=== PATIENT | male | born 1955 | race Caucasian/White ===

== ENCOUNTER 2020-12-19 21:06 | Outpatient (REF) | payer MEDICARE, SELFPAY ==
[2020-12-19 21:56] LABS: ALT 49 U/L (16-63); AST 21 U/L (15-37); Calculated LDL 184 mg/dL (<100); Cholesterol 261 mg/dL (<200); HDL Cholesterol 62 mg/dL (40-60); Triglyceride 78 mg/dL (<150)
[2020-12-20 18:10] LABS: PSA, Screening 4.5 ng/mL (0.0-4.5)
== END 2020-12-19 21:07 | disposition home or self-care (01) ==
LOC: NCHCN 21:06
PROVIDERS: PCP Specialist/Technologist Athletic Trainer; Visit Provider Nurse Practitioner Family
DX: E78.89 Other lipoprotein metabolism disorders (principal); Z12.5 Encounter for screening for malignant neoplasm of prostate
CPT/HCPCS: 80061; 84153; 84450; 84460

== ENCOUNTER → 2021-04-26 10:23 | Outpatient (BNVA) | payer MEDICARE, SELFPAY | PROVIDERS: PCP Specialist/Technologist Athletic Trainer; Referring Provider Specialist/Technologist Athletic Trainer; Visit Provider Student in an Organized Health Care Education/Training Program | DX: S86.012A Strain of left Achilles tendon, initial encounter (principal); X50.0XXA Overexertion from strenuous movement or load, initial encounter | CPT/HCPCS: 99203 ==

== ENCOUNTER → 2021-05-10 07:57 | Outpatient (BNVA) | payer MEDICARE, SELFPAY | PROVIDERS: PCP Specialist/Technologist Athletic Trainer; Referring Provider Specialist/Technologist Athletic Trainer | DX: S86.012D Strain of left Achilles tendon, subsequent encounter (principal); X58.XXXD Exposure to other specified factors, subsequent encounter | CPT/HCPCS: 99212 ==

== ENCOUNTER → 2021-06-07 08:49 | Outpatient (BNVA) | payer MEDICARE, SELFPAY | PROVIDERS: PCP Specialist/Technologist Athletic Trainer; Referring Provider Specialist/Technologist Athletic Trainer; Visit Provider Student in an Organized Health Care Education/Training Program | DX: S86.012D Strain of left Achilles tendon, subsequent encounter (principal); X58.XXXD Exposure to other specified factors, subsequent encounter | CPT/HCPCS: 99212 ==

== ENCOUNTER → 2021-07-05 08:27 | Outpatient (BNVA) | payer MEDICARE, SELFPAY | PROVIDERS: PCP Specialist/Technologist Athletic Trainer; Referring Provider Specialist/Technologist Athletic Trainer; Visit Provider Student in an Organized Health Care Education/Training Program | DX: S86.012D Strain of left Achilles tendon, subsequent encounter (principal); X58.XXXD Exposure to other specified factors, subsequent encounter | CPT/HCPCS: 99212 ==

== ENCOUNTER 2021-09-17 13:16 | Emergency (ER) | payer MEDICARE, SELFPAY ==
[2021-09-17] VITALS (18 sets, daily range): BP systolic 132–171; BP diastolic 79–98; PULSE 77–90; RESP 16–26; TEMP 36.6; O2SAT 91–97
--- NOTE | 2021-09-17 13:15 | RT.EKG_ITS ---
APPROVED REPORT Exam: Resting ECG Reason for Exam: SOB Patient Location: E HR:88 bpm ECG Measurements Heart Rate [address] 154 P 65 QRSd 106 QRS -46 QT 393 T 58 QTc 475 Conclusion Sinus rhythm...normal P axis, V-rate 60- 99 Incomplete RBBB and LAFB...axis(240,-40), S>R II III aVF ST elevation, consider inferior injury...ST >0.08mV, II III aVF. Sinus. RBBB. LAFB. No STEMI. I have reviewed and interpreted ECG and agree with software generated interpretation.
--- NOTE | 2021-09-17 13:30 | DI.CT_ITS ---
Exam(s) CT CHEST PE ABD PELVIS W EXAM: CT CHEST PE ABD PELVIS W CLINICAL HISTORY: PUI, RUQ abd Pain, R/O PNA, PE. TECHNIQUE: Imaging Protocol: Axial CT angiography was performed with multi-slice acquisition and m ulti-planar and/or 3D reconstructions. CONTRAST MATERIAL: Intravenous: Omnipaque 350 Contrast volume:100 ml Oral: None COMPARISON: CR RIGHT SHOULDER COMPLETE from 08/12/2017 CR LEFT SHOULDER COMPLETE from 08/12/2017 FINDINGS: CHEST: PULMONARY ARTERIES: There are intraluminal filling defects in multiple right lower lobe arteries cons istent with acute pulmonary emboli. There does not appear to be involvement of right upper and right middle lobe vessels nor evidence of pulmonary emboli in the opposite-left lung. LUNGS: Some increased markings consistent with infiltrate noted in the right lower lobe posterior bas al segment. Cannot exclude developing pulmonary infarct given that this is the territory of the thro mbosed vessels. Otherwise, there are mild subpleural increased markings in the posterior segment of the right upper lobe. Mild benign-appearing increased markings are noted in the superior lingular se gment of the left lung. No significant focal findings in the left lower lobe. No pleural effusions on either side. No focal findings in the trachea and mainstem bronchi.. MEDIASTINUM: There is no hilar nor mediastinal adenopathy. Visualized thyroid unremarkable. CARDIAC: Heart size is normal. There is no pericardial effusion. There is no significant shift of t he interventricular septum.Caliber of the thoracic aorta is within normal limits. OSSEOUS: No significant osseous lesions.. ABDOMEN: There is no ascites. LIVER: There are 3 benign-appearing cysts in the left hepatic lobe. The largest of these measures 1. 2 by 1.2 cm. There are 2 small cysts in the right hepatic lobe. Largest of these measures 6 millime ters. GALLBLADDER/BILIARY: No obvious gallbladder pathology. CBD is not dilated. PANCREAS: No evidence of pancreatic mass nor dilatation of the pancreatic duct. SPLEEN: Spleen is not enlarged. There are no intrasplenic lesions. Splenic and portal veins are pop nt. ADRENALS: There are no significant adrenal masses. KIDNEYS:There are parapelvic cysts in both kidneys. There is a calculus lower pole calyx of the left kidney measuring 7 x 5 millimeters. No other renal calculi. Parapelvic cysts are also seen in the left kidney. Ureters are not dilated. No calculi at the ureterovesical junctions nor within the non distended urinary bladder. No solid renal masses.. ABDOMINAL AORTA: Abdominal aorta is not enlarged. LYMPH NODES: There is no retroperitoneal or para-aortic adenopathy. ABDOMINAL WALL/GI: No evidence of significant anterior abdominal wall hernia. No bowel obstruction. PELVIS: LYMPH NODES: There are multiple slightly prominent lymph nodes in the right lower quadrant mesentery in the region of the mesoappendix. The appendix itself appears unremarkable. No obvious abnormality of the terminal ileum and cecum. GI: No evidence of appendicitis.No evidence of sigmoid diverticulitis. URINARY BLADDER: No calculi nor masses evident REPRODUCTIVE: Prostate size upper normal. Seminal vesicles unremarkable. OSSEOUS: No significant osseous lesions. IMPRESSION: 1. This study is positive for the presence of pulmonary emboli right lung lower lobe vessels. There is some infiltrate in the posterior basal segment of the right lower lobe. Cannot exclude the possib ly that this is developing infarct given that this is the area of fed by the presently thrombosed art eries. No other areas of pulmonary emboli nor infiltrate. There are no pleural effusions 2. No intrathoracic adenopathy. 3. Parapelvic cysts noted in both kidneys. 7 x 5 millimeter calculus in the lower pole left kidney. No hydroureter nor calculi in the urinary bladder. 4. There are few slightly prominent lymph nodes in the right lower quadrant mesentery, not associated with obvious abnormality the appendix nor terminal ileum. Report called by myself to ER provider RADIATION DOSE DELIVERED: 1,411.77mGy.cm Total DLP DATA REPOSITORY: All CT scans at this facility are submitted to the National Radiology Data Registry (NRDR) Dose Index Registry (DIR) with the [employer] (ACR). RADIATION OPTIMIZATION: All CT scans at this facility use at least one of these dose optimization te chniques: automated exposure control; mA and/or kV adjustment per patient size (includes targeted exa ms where dose is matched to clinical indication); or iterative reconstruction.
--- NOTE | 2021-09-17 13:39 | ED.GENADUL_ITS ---
Discharge Plan Disposition Patient Disposition: HOME Condition: Stable Discharge Details Clinical Impression: Pulmonary embolism, Pneumonia Primary Care Provider: Nishi Mckinley ED Provider: Keisha Salgado Home Meds and New Rx's Prescriptions: New Carolyne DVT-PE Treat 30D Start 5 mg (74 tabs) tablets,dose pack See Rx Instructions .ROUTE .COMPLEX 30 Days Qty: 74 RF: 0 doxycycline hyclate 100 mg capsule 100 mg PO BID 10 Days Qty: 20 RF: 0 No Action multivitamin [Daily Multiple] 1 EACH tablet 1 ea PO DAILY RF: 0 atorvastatin 20 mg tablet 20 mg PO QHS RF: 0 albuterol sulfate [ProAir HFA] 90 mcg/actuation HFA aerosol inhaler 2 puff inhalation Q6H PRNRF: 0 Discharge Instructions Instructions: Pulmonary Embolism (ED), Pneumonia (ED) Additional Instructions: At this time it appears you have a small blood clot and infiltrate in the right lower lobe of the lungs. We are going to place you on blood thinners and antibiotics. Take them as directed. The prescriptions were sent to the pharmacy on file. Please return immediately to the emergency department for any worsening shortness of breath, chest pain or any concerns. Follow up with primary care provider in 3-5 days. Return to ED sooner if any worsening or concerns. Increase oral fluids. Referrals: Harley Eason [ NON-[facility] STAFF PHYSICIAN] - 3 days Discharge Data Discharge Date/Time-TO BE ENTERED AT DEPARTURE: 09/17/21 17:51 Medical Decision Making <Keisha Salgado - Last Filed: 09/18/21 17:06> 65-year-old male to the ER with chief complaint right-sided chest and abdominal pain which has worsened today. Patient describes the pain as sharp stabbing, worse when he takes a deep breath with some increased shortness of breath. He reports having URI type symptoms over the last week. He does have a granddaughter who was tested positive for COVID. He does not smoke, occasional alcohol none within the last 2 weeks. He denies any nausea vomiting diarrhea. No surgical history. He is fully vaccinated for COVID. Past medical history includes high cholesterol and asthma. Upon initial examination he is satting 97% on room air, speaking in full sentences no increased work of breathing. FINDINGS: CHEST: PULMONARY ARTERIES: There are intraluminal filling defects in multiple right lower lobe arteries consistent with acute pulmonary emboli. There does not appear to be involvement of right upper and right middle lobe vessels nor evidence of pulmonary emboli in the opposite-left lung. LUNGS: Some increased markings consistent with infiltrate noted in the right lower lobe posterior basal segment. Cannot exclude developing pulmonary infarct given that this is the territory of the thrombosed vessels. Otherwise, there are mild subpleural increased markings in the posterior segment of the right upper lobe. Mild benign-appearing increased markings are noted in the superior lingular segment of the left lung. No significant focal findings in the left lower lobe. No pleural effusions on either side. No focal findings in the trachea and mainstem bronchi.. MEDIASTINUM: There is no hilar nor mediastinal adenopathy. Visualized thyroid unremarkable. CARDIAC: Heart size is normal. There is no pericardial effusion. There is no significant shift of the interventricular septum.Caliber of the thoracic aorta is within normal limits. OSSEOUS: No significant osseous lesions.. ABDOMEN: There is no ascites. LIVER: There are 3 benign-appearing cysts in the left hepatic lobe. The largest of these measures 1.2 by 1.2 cm. There are 2 small cysts in the right hepatic lobe. Largest of these measures 6 millimeters. GALLBLADDER/BILIARY: No obvious gallbladder pathology. CBD is not dilated. PANCREAS: No evidence of pancreatic mass nor dilatation of the pancreatic duct. SPLEEN: Spleen is not enlarged. There are no intrasplenic lesions. Splenic and portal veins are patent. ADRENALS: There are no significant adrenal masses. KIDNEYS:There are parapelvic cysts in both kidneys. There is a calculus lower pole calyx of the left kidney measuring 7 x 5 millimeters. No other renal calculi. Parapelvic cysts are also seen in the left kidney. Ureters are not dilated. No calculi at the ureterovesical junctions nor within the nondistended urinary bladder. No solid renal masses.. ABDOMINAL AORTA: Abdominal aorta is not enlarged. LYMPH NODES: There is no retroperitoneal or para-aortic adenopathy. ABDOMINAL WALL/GI: No evidence of significant anterior abdominal wall hernia. No bowel obstruction. PELVIS: LYMPH NODES: There are multiple slightly prominent lymph nodes in the right lower quadrant mesentery in the region of the mesoappendix. The appendix itself appears unremarkable. No obvious abnormality of the terminal ileum and cecum. GI: No evidence of appendicitis.No evidence of sigmoid diverticulitis. URINARY BLADDER: No calculi nor masses evident REPRODUCTIVE: Prostate size upper normal. Seminal vesicles unremarkable. OSSEOUS: No significant osseous lesions. IMPRESSION: 1. This study is positive for the presence of pulmonary emboli right lung lower lobe vessels. There is some infiltrate in the posterior basal segment of the right lower lobe. Cannot exclude the possibly that this is developing infarct given that this is the area of fed by the presently thrombosed arteries. No other areas of pulmonary emboli nor infiltrate. There are no pleural effusions 2. No intrathoracic adenopathy. 3. Parapelvic cysts noted in both kidneys. 7 x 5 millimeter calculus in the lower pole left kidney. No hydroureter nor calculi in the urinary bladder. 4. There are few slightly prominent lymph nodes in the right lower quadrant mes entery, not associated with obvious abnormality the appendix nor terminal ileum. 1621: Hospitalist paged. Discussed patient case in details with hospitalist who recommends that patient should be safe for discharge home due to negative for heart strain and maintaining oxygen saturation. He does recommend Eliquis. I will discuss results with patient prescribe doxycycline and Eliquis and strict return instructions. At this time we are waiting repeat troponin at 435pm. Troponin negative patient discharged with strict return instructions. Patient remained hemodynamically stable is nontachycardic O2 sat 94% on room air. <Neftaly Ricks NP - Last Filed: 09/20/21 10:13> Please see previous documentation for full care of patient. 2nd troponin negative and patient discharged per previous recommendation from initial provider. Patient left in stable condition. HPI <Keisha Salgado - Last Filed: 09/18/21 17:06> General Mode of arrival: ambulatory . Date/Time Provider Initiated Documentation: 09/17/21 13:17 . Limitations to Documentation: no limitations . Information obtained by: patient, RN/MD ([facility]), RN notes reviewed and old records reviewed . HPI Narrative: 65-year-old male to the ER with chief complaint right-sided chest and abdominal pain which has worsened t mayi. Patient describes the pain as sharp stabbing, worse when he takes a deep breath with some increased shortness of breath. He reports having URI type symptoms over the last week. He does have a granddaughter who was tested positive for COVID. He does not smoke, occasional alcohol none within the last 2 weeks. He denies any nausea vomiting diarrhea. No surgical history. He is fully vaccinated for COVID. Past medical history includes high cholesterol and asthma. Upon initial examination he is satting 97% on room air, speaking in full sentences no increased work of breathing. Related Data Home Medications Medication Instructions Recorded Confirmed multivitamin [Daily Multiple 1 ea PO DAILY 01/07/17 09/17/21 Vitamin] albuterol sulfate 90 mcg/actuation 2 puff INHALATION Q6H PRN 04/29/21 09/17/21 aerosol inhaler atorvastatin 20 mg tablet 20 mg PO QHS 04/29/21 09/17/21 apixaban [Eliquis DVT-PE Treat 30D See Rx Instructions .ROUTE 09/17/21 Start] .COMPLEX 30 Days #74 dose pk doxycycline hyclate 100 mg PO BID 10 Days #20 cap 09/17/21 Previous Rx's Medication Instructions Recorded apixaban [Eliquis DVT-PE Treat 30D See Rx Instructions .ROUTE 09/17/21 Start] .COMPLEX 30 Days #74 dose pk doxycycline hyclate 100 mg PO BID 10 Days #20 cap 09/17/21 Allergies Allergy/AdvReac Type Severity Reaction Status Date / Time No Known Drug Allergies Allergy Unknown Unverified 09/17/21 13:55 dust and dust mites Allergy Uncoded 09/17/21 13:54 General Stated Complaint: SOB JUSTIN: 2 Review of Systems <Keisha Salgado - Last Filed: 09/18/21 17:06> All systems reviewed & are unremarkable except as noted in HPI and below Cardiovascular Cardiovascular: Reports dyspnea Respiratory Respiratory: Reports pain on inspiration and Reports dyspnea Gastrointestinal Gastrointestinal: Reports abdominal pain PFSH <Keisha Salgado - Last Filed: 09/18/21 17:06> All Active Problems (Updated 09/17/21 @ 16:37 by Keisha Salgado) Pulmonary embolism (Chronic) Pneumonia (Acute) Achilles rupture, left (Acute) Medical History 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 Appears stated age. Normal body habitus. Head: Normocephalic, no trauma. Eyes: Pupils PERRL, Red reflex noted, EOM's intact. Eyelids symmetrical without lesions, discharge, or swelling. ENT: Bilateral TM's WNL, External ear normal to inspection, no mastoid TTP, swelling, or erythema, Nasal turbinates WNL, no nasal discharge. Normal dentition, Posterior pharynx WNL, no exudate. Chest: RRR, Normal S1, S2, distal pulses intact. Resp: Rhonchi right lower lobe, Abdomen: Soft, non-distended, Normoactive bowel sounds all 4 quads. Musculoskeletal: Normal gait, 5/5 strength to all four extremities. Skin: No suspicious rashes or lesions. Capillary refill less than 2 sec. Neurologic: Cranial nerves II-XII intact. Alert and oriented x 3. Motor: No deficits noted. Sensory: Intact bilaterally all 4 extremities. Reflexes: DTR's intact bilaterally.. Hematologic/Lymphatic: No ecchymosis, no lymphadenopathy. Course <Keisha Salgado - Last Filed: 09/18/21 17:06> Vital Signs Vital signs: Vital Signs Temperature 36.6 C 09/17/21 13:25 Pulse 90 09/17/21 13:25 Respiratory Rate 26 H 09/17/21 13:25 Blood Pressure 167/98 H 09/17/21 13:25 Pulse Oximetry 97 09/17/21 13:25 Temperature 36.6 C 09/17/21 13:25 Pulse 90 09/17/21 13:25 Respiratory Rate 26 H 09/17/21 13:25 Respiratory Effort Incrsd Work of Breathing 09/17/21 13:33 Blood Pressure 167/98 H 09/17/21 13:25 Pulse Oximetry 97 09/17/21 13:25 Oxygen Delivery Method Room Air 09/17/21 13:25 Oxygen Flow Rate 0 09/17/21 13:25 Pain Level 8 09/17/21 13:25
[2021-09-17 13:44] LABS: Source Nasal/Nares
[2021-09-17 13:52] LABS: Abs Immature Grans 0.05 10^3/uL (0.0-0.06); Absolute Basophil Count 0.05 10^3/uL (0.0-0.2); Absolute Eosinophil Count 0.02 10^3/uL (0.0-0.7); Absolute Lymphocyte Count 1.03 10^3/uL (1.2-3.4); Absolute Monocyte Count 1.61 10^3/uL (0.1-0.8); Basophils % 0.4; Eosinophils % 0.2; HCT 49.5 % (40.0-50.0); HGB 16.8 g/dL (13.5-17.5); Immature Grans % 0.4; Lymphocytes % 8.6; MCH 31.1 pg (27.0-33.0); MCHC 33.9 % (32.0-36.0); MCV 91.5 fL (80-95); MPV 9.3 fL (8.0-11.0); Monocytes % 13.4; Nucleated RBC 0 %; Platelet Count 321 10^3/uL (130-400); RBC 5.41 10^6/uL (4.36-5.78); RDW 12.6 % (11.8-14.1); RDW-SD 42.3 fL; WBC 12.03 10^3/uL (4.4-10.8)
[2021-09-17 13:58] LABS: Absolute Neutrophil Count 9.26 10^3/uL (1.2-6.7)
--- NOTE | 2021-09-17 14:15 | RT.EKG_ITS ---
APPROVED REPORT Exam: Resting ECG Reason for Exam: R/O ST elevation Patient Location: E HR:78 bpm ECG Measurements Heart Rate 78 AXIS IN 158 P 45 QRSd 107 QRS -30 QT 416 T 48 QTc 473 Conclusion Sinus rhythm...normal P axis, V-rate 60- 99 Incomplete RBBB and LAFB...axis(240,-40), S>R II III aVF. Sinus. LAFB. RBBB. No STEMI. I have reviewed and interpreted ECG and agree with software generated interpretation.
[2021-09-17 14:22] LABS: Diff Comment Diff Reviewed; RBC Morphology Normal
[2021-09-17 14:57] LABS: ALT 30 U/L (16-63); AST 15 U/L (15-37); Albumin 3.4 g/dL (3.4-5.0); Alkaline Phosphatase 118 U/L (46-116); Anion Gap 12.3 mmol/L (3-11); BUN 13 mg/dL (7-18); Bilirubin, Total 0.8 mg/dL (0.2-1.0); CO2 23.7 mmol/L (21.0-32.0); CREATININE 0.8 mg/dL (0.70-1.30); Calcium 9.1 mg/dL (8.5-10.1); Chloride 99 mmol/L (98-107); Glucose 108 mg/dL (74-106); Potassium 3.9 mmol/L (3.5-5.1); Sodium 135 mmol/L (136-145); Total Protein 8.2 g/dL (6.4-8.2); Troponin I < 50 ng/L (<or=60)
[2021-09-17 15:15] LABS: COVID-19 PCR Negative (Negative)
--- NOTE | 2021-09-17 16:30 | RT.EKG_ITS ---
APPROVED REPORT Exam: Resting ECG Reason for Exam: PE Patient Location: E HR:80 bpm ECG Measurements Heart Rate 80 AXIS DE 163 P 65 QRSd 103 QRS -37 QT 412 T 53 QTc 475 Conclusion Sinus rhythm...normal P axis, V-rate 60- 99 Incomplete RBBB and LAFB...axis(240,-40), S>R II III aVF. Sinus. Incomplete RBBB and LAFB. No STEMI. I have reviewed and interpreted ECG and agree with software generated interpretation.
[2021-09-17 16:40] LABS: INR 1.2 (0.9-1.1); PTT Activated 27.5 sec (21.0-27.5); Prothrombin Time 11.8 sec (9.3-11.0)
[2021-09-17 17:13] LABS: Troponin I < 50 ng/L (<or=60)
[2021-09-17] MEDS: Apixaban 5 MG TAB 10 MG PO (17:15)
[2021-09-17] MEDS: Doxycycline Hyclate 100 MG CAP PO (17:15)
== END 2021-09-17 17:51 | disposition home or self-care (01) ==
PROVIDERS: Emergency Provider Registered Nurse Emergency; PCP Nurse Practitioner Family
DX: I26.99 Other pulmonary embolism without acute cor pulmonale (principal); J18.9 Pneumonia, unspecified organism; R06.02 Shortness of breath; R07.9 Chest pain, unspecified
CPT/HCPCS: 36415; 71275; 74177; 80053; 87635; 93005; 99285; 83735; 84484; 85025; 85610; 85730; 93010; 99284

== ENCOUNTER 2021-10-09 08:55 | Outpatient (REF) | payer MEDICARE, SELFPAY ==
[2021-10-09 14:55] LABS: Calculated LDL 149 mg/dL (<100); Cholesterol 227 mg/dL (<200); HDL Cholesterol 62 mg/dL (40-60); Triglyceride 80 mg/dL (<150)
[2021-10-09 22:30] LABS: PSA, Screening 6.7 ng/mL (0.0-4.5)
== END 2021-10-09 08:56 | disposition home or self-care (01) ==
LOC: NCHCN 08:55
PROVIDERS: PCP Nurse Practitioner Family; Visit Provider Nurse Practitioner Family
DX: E78.5 Hyperlipidemia, unspecified (principal); Z12.5 Encounter for screening for malignant neoplasm of prostate
CPT/HCPCS: 80061; 84153

== ENCOUNTER → 2021-10-17 12:51 | Outpatient (BNVA) | payer MEDICARE, SELFPAY | PROVIDERS: PCP Nurse Practitioner Family; Referring Provider Nurse Practitioner Family; Visit Provider Urology | DX: R97.20 Elevated prostate specific antigen [PSA] (principal); N20.0 Calculus of kidney | CPT/HCPCS: 81003; 99215 ==

== ENCOUNTER 2022-02-06 02:20 | Outpatient (CLI) | payer MEDICARE, SELFPAY ==
[2022-02-06 18:22] LABS: PSA, Diagnostic 5.8 ng/mL (<=4.5)
== END 2022-02-06 02:21 | disposition home or self-care (01) ==
LOC: LBO 02:20
PROVIDERS: PCP Nurse Practitioner Family; Visit Provider Urology
DX: R97.20 Elevated prostate specific antigen [PSA] (principal)
CPT/HCPCS: 36415; 84153

== ENCOUNTER → 2022-02-13 14:07 | Outpatient (BNVA) | payer MEDICARE, SELFPAY | PROVIDERS: PCP Nurse Practitioner Family; Referring Provider Nurse Practitioner Family; Visit Provider Nurse Practitioner Gerontology | DX: R97.20 Elevated prostate specific antigen [PSA] (principal) | CPT/HCPCS: 99213 ==

== ENCOUNTER 2022-05-06 02:42 | Outpatient (CLI) | payer MEDICARE, SELFPAY ==
[2022-05-06] MEDS: Inhaler, Assist Device 1 EACH MC (09:17)
[2022-05-06] MEDS: Albuterol HFA 18 GM 200 PUFF INH IH (09:17)
--- NOTE | 2022-05-23 16:18 | W.PFT ---
Date of service: 05/06/22 Time of Service: 14:45 Pulmonary Function Test Result Requesting Provider Steven Indications: LAFLEUR Interpretation Spirometry: There is moderate airflow limitation. There is no significant bronchodilator response. Lung Volumes: There is evidence of air trapping Diffusion Capacity: The diffusion is reduced. Airway Pressure: Normal airways resistance Impression Moderate airflow obstruction with a reduced diffusion, consistent with COPD with emphysema. Clinical Correlation therefore is recommended.
== END 2022-05-06 02:43 | disposition home or self-care (01) ==
LOC: RT 02:42
PROVIDERS: PCP Nurse Practitioner Family; Visit Provider Student in an Organized Health Care Education/Training Program
DX: J43.9 Emphysema, unspecified (principal)
CPT/HCPCS: 94060; 94726; 94729

== ENCOUNTER 2022-05-11 03:06 | Emergency (ER) | payer MEDICARE, SELFPAY ==
[2022-05-11] VITALS (19 sets, daily range): BP systolic 125–157; BP diastolic 75–111; PULSE 60–72; RESP 11–17; TEMP 36.8–36.9; O2SAT 91–96
--- NOTE | 2022-05-11 03:15 | DI.CT_ITS ---
Exam(s) CT CHEST WO EXAM: CT CHEST WO CLINICAL HISTORY: old PE and pneumonia, assess for prolonged damage. TECHNIQUE: Multi planar reconstructions were performed. CONTRAST MATERIAL: None COMPARISON: CT CT CHEST PE ABD PELVIS W from 09/17/2021 FINDINGS: CHEST: LUNGS: I note that this patient had acute right lower lobe pulmonary emboli on the CT scan of 022. The present study is noninfused and cannot be assessed for pulmonary emboli. Previously present mild subpleural infiltrate in the posterior aspect of the right upper lobe is berry lar to previous. Also minimal change in the atelectasis and mild infiltrate in the right lower lobe, not associated with pleural effusion and having appearance more of infiltrates as scarring than obvi ous neoplasm. No associated pleural effusion. In the opposite-left lung mild lingular findings are again noted. No pleural effusions on either [place] e. No new findings in trachea and mainstem bronchi. MEDIASTINUM: There is no obvious hilar nor mediastinal adenopathy. Visualized thyroid unremarkable.No obvious axillary adenopathy CARDIAC: Heart size is normal. There is no pericardial effusion.Caliber of the thoracic aorta is wit hin normal limits. VISUALIZED UPPER ABDOMEN:No significant adrenal masses. Partially visualized left kidney exhibits hy dronephrosis. Liver cysts again noted OSSEOUS: No significant osseous lesions.. IMPRESSION: 1. Relatively stable right lung findings when compared to 09/17/2021. No pleural effusions. No intr athoracic adenopathy. 2. Please note this patient had positive CTA study for right lower lobe pulmonary emboli on 2. This present study is noninfused and therefore cannot be assessed for pulmonary emboli. 3. See separate abdominal CT scan report RADIATION DOSE DELIVERED: 502.02mGy.cm Total DLP DATA REPOSITORY: All CT scans at this facility are submitted to the National Radiology Data Registry (NRDR) Dose Index Registry (DIR) with the [employer] (ACR). RADIATION OPTIMIZATION: All CT scans at this facility use at least one of these dose optimization te chniques: automated exposure control; mA and/or kV adjustment per patient size (includes targeted exa ms where dose is matched to clinical indication); or iterative reconstruction.
--- NOTE | 2022-05-11 03:18 | W.ED.GENAD ---
Discharge Plan Disposition Patient Disposition: HOME Condition: Good Discharge Details Clinical Impression: Kidney stone on left side Primary Care Provider: Nishi Mckinley ED Provider: Carlitos Tracey Home Meds and New Rx's Prescriptions: New tamsulosin [Flomax] 0.4 mg capsule 0.4 mg PO DAILY Qty: 10 0RF No Action atorvastatin 20 mg tablet 20 mg PO QHS albuterol sulfate [ProAir HFA] 90 mcg/actuation HFA aerosol inhaler 2 puff inhalation Q6H PRN fluticasone propion-salmeterol [Advair Diskus] 100-50 mcg/dose blister with device 1 inh inhalation BID Discharge Instructions Instructions: Kidney Stones (ED) Additional Instructions: At this time you have a kidney stone on the left. Please take the Flomax as directed. This has been sent to your pharmacy on file. Please take 1000 mg of Tylenol every 6 hours as needed for pain. This is the maximum dose. You will be contacted by our urologist Dr. Isaac for close follow-up this week. Please drink plenty of fluids and stay well-hydrated. If you notice any worsening of your symptoms, or any new symptoms such as vomiting, diarrhea, fever, chills, shortness of breath, chest pain, numbness, weakness, or fainting , please return immediately to the emergency department for reevaluation. Please follow up with your primary care provider as soon as possible for reassessment and reevaluation. As always, it was a pleasure participating in your medical care today. Referrals: Eloy Isaac MD [ [facility] STAFF PHYSICIAN] - Nishi Mckinley [Primary Care Provider] - Medical Decision Making 66-year-old male with past medical history of previous pulmonary embolism and pneumonia, asthma, who is no longer on anticoagulants, presents today for left lower quadrant pain. Patient states that yesterday he had a mild ache that started in his left testicle and left groin, it is no established itself in the left lower quadrant of his abdomen. He admits to a single episode of nausea and 1 episode of vomiting. No diarrhea. He did take 2 stool softeners today and this led to no bowel movements. He describes the pain as achy in nature. He denies any radiation to anywhere else. He denies any urinary complaints. He does have occasional history of kidney stones identified on CT imaging in the renal pelvis, but no past kidney stones. He denies fever or chills. No other complaints at this time. Of note he did recently see his powder truck driver and was scheduled for a Noncon CT scan of the chest for further evaluation of lung damage from his previous pulmonary embolism and pneumonia. He has no breathing or chest complaints whatsoever today. Exam demonstrates well-appearing male, notable left CVA tenderness but no reproducible abdominal tenderness whatsoever. No testicular or scrotal tenderness. Vitals are otherwise stable. Lungs are clear. Symptoms appear most concerning for kidney stone versus diverticulitis. We will get a CT scan, treat the patient's pain and gently rehydrate. Additionally he is scheduled for a noncontrast CT scan of his chest in 1 week as a routine follow-up with his powder truck driver. He did discuss this with us, and to help in ease of transport for the patient we will perform this scan now as well. 6:03 AM Urinalysis is returned with no evidence of infection whatsoever. Patient has minimal white count, no bandemia. Renal function is definitely worse than normal with a creatinine of 1.6. CT scan shows evidence of a 6 mm proximal left ureteral stone with moderate left-sided hydronephrosis. There is also a notable amount of perinephric fat stranding. There also appears to be fluid in the left inferior pararenal space, concerning for potential calyceal rupture of the left kidney. On reassessment the patient continues to be pain-free after the Toradol administration. He feels well. He is able to urinate. Symptoms are slightly atypical with no abdominal tenderness, and now being in a pain-free state especially in regards to the imaging findings. We did reach out to Dr. Isaca but it is the weekend at 6 in the morning and he is not available. We will reach out to [facility] for a urological discussion. 6:37 AM Discussed the case with Dr. Choi of [facility] urology. We discussed the imaging findings, and his lab findings as well. Including urinalysis. At this time urology feels that if the patient's pain is well controlled, and there is no evidence of infection then he can be discharged with close outpatient follow-up. They do not recommend urgent stenting at this time. Patient still remains pain-free currently. [facility] does recommend Flomax. We will give prescription for Flomax for home with close urology follow-up this week. Discussed red flags which to return. I have extensively reviewed the treatment plan and discharge instructions with the patient and their family. I have addressed all patient concerns at this time. The patient and family was made aware of what symptoms to monitor for that would warrant a return to the emergency department. Discussed the plan with the patient and family, they demonstrate verbal understanding and agreement with our assessment and plan at this time. The documentation in this chart was dictated using [employer] dictation software. Please excuse any dictation errors. FINDINGS: Liver: Multiple hypodensities throughout the liver, unchanged from prior exam. These are of doubtful clinical significance. Gallbladder and bile ducts: Normal. No calcified stones. No ductal dilation. Pancreas: Normal. No ductal dilation. Spleen: Normal. No splenomegaly. Adrenal glands: Normal. No mass. Kidneys and ureters: There is a 6 mm stone in the proximal left ureter resulting in moderate leftsided hydronephrosis. There are multiple stones in the inferior pole of the right kidney with the largest measuring 6 mm. Mild left-sided perinephric fat stranding is present as well. The right kidney and ureter are grossly unremarkable. Stomach and bowel: Unremarkable. No obstruction. No mucosal thickening. Appendix: No evidence of appendicitis. Intraperitoneal space: Unremarkable. No free air. No significant fluid collection Retroperitoneal space: There is a small amount of free fluid tracking in the retroperitoneum in the left inferior pararenal space. Vasculature: Diffuse aortoiliac calcifications are present. There is no evidence of abdominal aortic aneurysm. Lymph nodes: Unremarkable. No enlarged lymph nodes. Urinary bladder: Unremarkable as visualized. Reproductive: Unremarkable as visualized. Bones/joints: No aggressive appearing bony lesions. Soft tissues: Unremarkable. IMPRESSION: 1. 6 mm stone in the proximal left ureter resulting in moderate left-sided hydronephrosis. Given the amount of surrounding perinephric fat stranding, a superimposed infectious process cannot be excluded. 2. Free fluid tracking into the left inferior pararenal space. Given the amount of hydronephrosis in presumed obstruction, a calyceal rupture of the left kidney cannot be excluded. 3. Left-sided nephrolithiasis Thank you for allowing us to participate in the care of your patient. Dictated and Authenticated by: Neftaly Nuno DO 05/11/2022 5:41 AM Eastern Time ([place] & [place]) FINDINGS: Lungs: Diffuse centrilobular emphysematous changes of the lungs. Scarring is present in the lung bases. No significant pulmonary nodules. Pleural spaces: Unremarkable. No pneumothorax. No pleural effusion. Heart: Heart size is normal. Scattered coronary artery calcifications are present. Lymph nodes: Unremarkable. No enlarged lymph nodes. Vasculature: Unremarkable. No aortic aneurysm. Liver: Multiple hypodensities are seen in the left lobe of the liver, similar to prior exam. Bones/joints: No aggressive appearing bony lesions. Soft tissues: Unremarkable. IMPRESSION 1. Diffuse centrilobular emphysematous changes of the lungs with scarring in the lung bases. This is unchanged from prior exam. 2. Chronic changes as described. Thank you for allowing us to participate in the care of your patient. Dictated and Authenticated by: Neftaly Nuno DO 05/11/2022 5:37 AM Eastern Time ([place] & [place] HPI General Date/Time Provider Initiated Documentation: 05/11/22 03:16. HPI Narrative: 66-year-old male with past medical history of previous pulmonary embolism and pneumonia, asthma, who is no longer on anticoagulants, presents today for left lower quadrant pain. Patient states that yesterday he had a mild ache that started in his left testicle and left groin, it is no established itself in the left lower quadrant of his abdomen. He admits to a single episode of nausea and 1 episode of vomiting. No diarrhea. He did take 2 stool softeners today and this led to no bowel movements. He describes the pain as achy in nature. He denies any radiation to anywhere else. He denies any urinary complaints. He does have occasional history of kidney stones identified on CT imaging in the renal pelvis, but no past kidney stones. He denies fever or chills. No other complaints at this time. Of note he did recently see his powder truck driver and was scheduled for a Noncon CT scan of the chest for further evaluation of lung damage from his previous pulmonary embolism and pneumonia. He has no breathing or chest complaints whatsoever today. Related Data Home Medications Medication Instructions Recorded Confirmed albuterol sulfate 90 mcg/actuation 2 puff inhalation Q6H PRN 04/29/21 05/02/22 aerosol inhaler (ProAir HFA) atorvastatin 20 mg tablet 20 mg PO QHS 04/29/21 05/02/22 fluticasone 100 mcg-salmeterol 50 1 inh inhalation BID 01/14/22 05/02/22 mcg/dose blistr powdr for inhalation (Advair Diskus) tamsulosin 0.4 mg capsule (Flomax) 0.4 mg PO DAILY #10 caps 05/11/22 Previous Rx's Medication Instructions Recorded tamsulosin 0.4 mg capsule (Flomax) 0.4 mg PO DAILY #10 caps 05/11/22 Allergies Allergy/AdvReac Type Severity Reaction Status Date / Time No Known Drug Allergies Allergy Unknown Unverified 05/11/22 03:09 dust and dust mites Allergy Uncoded 05/11/22 03:09 General Stated Complaint: Abd Prob JUSTIN: 3 Review of Systems All systems reviewed & are unremarkable except as noted in HPI and below PFSH All Active Problems (Updated 05/11/22 @ 06:41 by Carlitos Tracey DO) Kidney stone on left side (Acute) Dyspnea on exertion (Acute) Pulmonary infiltrate (Acute) Asthma (Chronic) Pulmonary embolism and infarction (Acute) Achilles rupture, left (Acute) Medical History 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 3.ENT: Atraumatic external nose and ears. Moist MM. Neck: Symmetric, trachea midline, No thyromegaly. 4.CVS: +S1/S2, No murmurs or gallops. Peripheral pulses 2+ and equal in all extremities. Brisk capillary refill in all extremities. 5.RESP: Unlabored respiratory effort. Clear to auscultation bilaterally. No wheezes rales or rhonchi 6.GI: Soft, Nontender/Nondistended, No hepatosplenomegaly. No guarding or rebound. In spite of no tenderness on palpation of the abdomen he has notable left CVA tenderness. Testicular exam is nontender and unremarkable. Normal cremasteric reflex. No penile tenderness. No pain to McBurney's point. Negative Interiano sign. 7.MSK: Normocephalic/Atraumatic, Extremities w/o deformity or ttp No cyanosis or clubbing, Normal movement of all extremities 8.Skin: Warm, Dry. No rashes or lesions. 9.Neuro: lockstitch sleeve maker II-XII grossly intact. Sensation grossly intact, no focal neurologic deficits. 10.Psych: (AAO) x3. Appropriate mood and affect Course Vital Signs Vital signs: Vital Signs Temperature 36.8 C 05/11/22 03:10 Pulse 72 05/11/22 03:10 Respiratory Rate 17 05/11/22 03:10 Blood Pressure 157/111 H 05/11/22 03:10 Pulse Oximetry 96 05/11/22 03:10 Temperature 36.8 C 05/11/22 03:10 Temperature Source Temporal Artery Scan 05/11/22 03:10 Pulse 72 05/11/22 03:10 Respiratory Rate 17 05/11/22 03:10 Respiratory Effort 05/11/22 03:10 Blood Pressure 157/111 H 05/11/22 03:10 Blood Pressure Position Sitting 05/11/22 03:10 Pulse Oximetry 96 05/11/22 03:10 Oxygen Delivery Method Room Air 05/11/22 03:10 Oxygen Flow Rate 0 05/11/22 03:10 Pain Level 6 05/11/22 03:10
[2022-05-11] MEDS: Ketorolac 15 MG/ML VIAL IVP (03:28)
[2022-05-11] MEDS: Normal Saline 500 ML IV (03:29)
[2022-05-11 03:38] LABS: Abs Immature Grans 0.17 10^3/uL (0.0-0.06); Absolute Basophil Count 0.01 10^3/uL (0.0-0.2); Absolute Lymphocyte Count 0.86 10^3/uL (1.2-3.4); Absolute Neutrophil Count 9.28 10^3/uL (1.2-6.7); Basophils % 0.1; HCT 52.9 % (40.0-50.0); Immature Grans % 1.5; Lymphocytes % 7.3; MCH 31.2 pg (27.0-33.0); MCV 92 fL (80-95); MPV 9.2 fL (8.0-11.0); Monocytes % 11.9; Neutrophils % 79.2; Platelet Count 256 10^3/uL (130-400); RBC 5.77 10^6/uL (4.36-5.78); RDW 12.6 % (11.8-14.1); RDW-SD 42.1 fL; WBC 11.72 10^3/uL (4.4-10.8)
[2022-05-11 03:40] LABS: Absolute Monocyte Count 1.39 10^3/uL (0.1-0.8)
[2022-05-11 03:42] LABS: Diff Comment Agrees w/ Instrument
[2022-05-11 03:47] LABS: ALT 40 U/L (16-63); AST 23 U/L (15-37); Albumin 3.9 g/dL (3.4-5.0); Alkaline Phosphatase 115 U/L (46-116); Anion Gap 10.9 mmol/L (3-11); BUN 20 mg/dL (7-18); Bilirubin, Total 1.2 mg/dL (0.2-1.0); CO2 26.1 mmol/L (21.0-32.0); CREATININE 1.6 mg/dL (0.70-1.30); Calcium 9.1 mg/dL (8.5-10.1); Chloride 98 mmol/L (98-107); Estimated GFR 46.64 (mL/min/1.73m2); Glucose 117 mg/dL (74-106); Potassium 3.8 mmol/L (3.5-5.1); Sodium 135 mmol/L (136-145); Total Protein 8.1 g/dL (6.4-8.2)
--- NOTE | 2022-05-11 04:05 | DI.CT_ITS ---
Exam(s) CT RENAL COLIC WO EXAM: CT RENAL COLIC WO CLINICAL HISTORY: LLQ pain, r/o stone/diverticulitis. TECHNIQUE: Imaging Protocol: Axial computed tomography images with coronal and sagittal reformatted images were created and reviewed CONTRAST MATERIAL: Intravenous: none Oral: None COMPARISON: CT CT CHEST PE ABD PELVIS W from 09/17/2021 FINDINGS: VISUALIZED LUNG BASES: See separate chest CT report performed today.. No pleural effusions. ABDOMEN: There is no ascites. LIVER: There are 3 adjacent cysts in the left hepatic lobe again noted measuring up to 1.2 cm size. Smaller subcapsular hypodensity in the right hepatic lobe also noted, also benign appearance, either cyst or small hemangioma. Another similar finding medially in the right hepatic lobe is unchanged. No new ominous focal hepatic lesions. No obvious dilatation of intrahepatic ducts. GALLBLADDER/BILIARY: No obvious gallbladder pathology. CBD is not dilated. PANCREAS: No evidence of pancreatic mass nor dilatation of the pancreatic duct. SPLEEN: Spleen is not enlarged. No obvious intrasplenic lesions. ADRENALS: There are no significant adrenal masses. KIDNEYS:Parapelvic cysts are again noted bilaterally. However, on the left side the previously prese nt intrarenal calculus has now descended to the UPJ level and is causing ipsilateral hydronephrosis a shayna this level. Mild perinephric streaking. Additional similar size calculi are seen in the lower pole calices of the ipsilateral left kidney. The culprit calculus measures approximately 6-7 millime ters. There are no calculi in the opposite-right kidney. There is streaking around the left ureter. No other calculi seen lower down in the left ureter nor in the urinary bladder and ureterovesical j unctions.. ABDOMINAL AORTA: Abdominal aorta is not enlarged. LYMPH NODES: There is no retroperitoneal nor paraaortic adenopathy. ABDOMINAL WALL: Fat only containing anterior abdominal wall umbilical hernia. No inguinal hernias. GI: There is no evidence of bowel obstruction, free air, nor abscess. PELVIS: LYMPH NODES: There is no intrapelvic nor inguinal adenopathy. GI: No evidence of appendicitis.No evidence of sigmoid diverticulitis. URINARY BLADDER: No calculi nor obvious masses evident REPRODUCTIVE: Unremarkable OSSEOUS: No significant osseous lesions. No fractures evident. IMPRESSION: 1. There is a 6-7 millimeter obstructing calculus at the upper left ureter UPJ level with mild dilata tion of the collecting system above this level, this superimposed upon parapelvic cysts (as better se en on the prior contrast infused study of 09/17/2021). There also additional remaining calculi in th e lower pole of the left kidney, similar size. There are no calculi in the mid-lower ureter although there is some streaking around the ureter implying that there has been some trauma to the ureter, mo st probably coming from the level of the UPJ. 2. There are no calculi in the opposite-right kidney nor in the right ureter and there are no calculi in the urinary bladder. 3. Other findings as above RADIATION DOSE DELIVERED: 707.12mGy.cm Total DLP DATA REPOSITORY: All CT scans at this facility are submitted to the National Radiology Data Registry (NRDR) Dose Index Registry (DIR) with the [employer] ([employer]). RADIATION OPTIMIZATION: All CT scans at this facility use at least one of these dose optimization te chniques: automated exposure control; mA and/or kV adjustment per patient size (includes targeted exa ms where dose is matched to clinical indication); or iterative reconstruction.
[2022-05-11 04:38] LABS: Bilirubin Small (Negative); Blood Trace-lysed (Negative); Clarity Clear (Clear); Glucose Negative (Negative); Ketones 15 mg/dL (Negative); Leukocyte Esterase Negative (Negative); Nitrite Negative (Negative); Specific Gravity >= 1.030 (1.005-1.025); Urobilinogen 0.2 EU/dL (Up TO 0.2); pH 5.5 (5-8)
[2022-05-11 04:44] LABS: Bacteria Rare HPF (Negative); C & S Indicated? No; Casts 0-2 Hyaline LPF (Negative); Crystals Negative HPF (Negative); Epithelial Cells Rare HPF (Negative); Mucus Negative (Negative); WBC Negative HPF (0-5)
--- NOTE | 2022-05-11 05:37 | DI.VRAD_ITS ---
PROCEDURE INFORMATION: Exam: CT Chest Without Contrast; Diagnostic Exam date and time: 05/11/2022 4:01 AM Age: 66 years old Clinical indication: Other: Old pe and pneumonia in August 2021; Patient HX: Assess for prolonged damage TECHNIQUE: Imaging protocol: Diagnostic computed tomography of the chest without contrast. 3D rendering (Not supervised by radiologist): MIP and/or 3D reconstructed images were created by the technologist. Radiation optimization: All CT scans at this facility use at least one of these dose optimization techniques: automated exposure control; mA and/or kV adjustment per patient size (includes targeted exams where dose is matched to clinical indication); or iterative reconstruction. COMPARISON: CT CHEST PE ABD PELVIS W 09/17/2021 3:18 PM FINDINGS: Lungs: Diffuse centrilobular emphysematous changes of the lungs. Scarring is present in the lung bases. No significant pulmonary nodules. Pleural spaces: Unremarkable. No pneumothorax. No pleural effusion. Heart: Heart size is normal. Scattered coronary artery calcifications are present. Lymph nodes: Unremarkable. No enlarged lymph nodes. Vasculature: Unremarkable. No aortic aneurysm. Liver: Multiple hypodensities are seen in the left lobe of the liver, similar to prior exam. Bones/joints: No aggressive appearing bony lesions. Soft tissues: Unremarkable. IMPRESSION: 1. Diffuse centrilobular emphysematous changes of the lungs with scarring in the lung bases. This is unchanged from prior exam. 2. Chronic changes as described. Dictated and Authenticated by: Neftaly Nuno MD. Ordering:JENNA Urbina MD
--- NOTE | 2022-05-11 05:42 | DI.VRAD_ITS ---
PROCEDURE INFORMATION: Exam: CT Abdomen And Pelvis Without Contrast Exam date and time: 05/11/2022 4:02 AM Age: 66 years old Clinical indication: Abdominal pain; Flank; Left lower quadrant (llq); Patient HX: No HX of kidney stone. TECHNIQUE: Imaging protocol: Computed tomography of the abdomen and pelvis without contrast. Radiation optimization: All CT scans at this facility use at least one of these dose optimization techniques: automated exposure control; mA and/or kV adjustment per patient size (includes targeted exams where dose is matched to clinical indication); or iterative reconstruction. COMPARISON: CT CHEST PE ABD PELVIS W 09/17/2021 3:18 PM FINDINGS: Liver: Multiple hypodensities throughout the liver, unchanged from prior exam. These are of doubtful clinical significance. Gallbladder and bile ducts: Normal. No calcified stones. No ductal dilation. Pancreas: Normal. No ductal dilation. Spleen: Normal. No splenomegaly. Adrenal glands: Normal. No mass. Kidneys and ureters: There is a 6 mm stone in the proximal left ureter resulting in moderate left-sided hydronephrosis. There are multiple stones in the inferior pole of the right kidney with the largest measuring 6 mm. Mild left-sided perinephric fat stranding is present as well. The right kidney and ureter are grossly unremarkable. Stomach and bowel: Unremarkable. No obstruction. No mucosal thickening. Appendix: No evidence of appendicitis. Intraperitoneal space: Unremarkable. No free air. No significant fluid collection. Retroperitoneal space: There is a small amount of free fluid tracking in the retroperitoneum in the left inferior pararenal space. Vasculature: Diffuse aortoiliac calcifications are present. There is no evidence of abdominal aortic aneurysm. Lymph nodes: Unremarkable. No enlarged lymph nodes. Urinary bladder: Unremarkable as visualized. Reproductive: Unremarkable as visualized. Bones/joints: No aggressive appearing bony lesions. Soft tissues: Unremarkable. IMPRESSION: 1. 6 mm stone in the proximal left ureter resulting in moderate left-sided hydronephrosis. Given the amount of surrounding perinephric fat stranding, a superimposed infectious process cannot be excluded. 2. Free fluid tracking into the left inferior pararenal space. Given the amount of hydronephrosis in presumed obstruction, a calyceal rupture of the left kidney cannot be excluded. 3. Left-sided nephrolithiasis Dictated and Authenticated by: Neftaly Nuno MD. Ordering:JENNA Urbina MD
[2022-05-11] MEDS: Tamsulosin 0.4 MG CAPCR PO (05:52)
== END 2022-05-11 07:00 | disposition home or self-care (01) ==
PROVIDERS: Emergency Provider Student in an Organized Health Care Education/Training Program; PCP Nurse Practitioner Family
DX: N13.2 Hydronephrosis with renal and ureteral calculous obstruction (principal); J45.909 Unspecified asthma, uncomplicated; Z86.711 Personal history of pulmonary embolism; Z79.51 Long term (current) use of inhaled steroids
CPT/HCPCS: 71250; 80053; 96361; 96374; 99284; 74176; 81003; 81015; 85025; J1885

== ENCOUNTER 2022-05-12 18:34 | Observation (INO) | payer MEDICARE, SELFPAY ==
[2022-05-12] VITALS (15 sets, daily range): BP systolic 148; BP diastolic 75; PULSE 81–94; RESP 13–23; TEMP 37.1; O2SAT 91–94
[2022-05-12 19:34] LABS: Bilirubin Small (Negative); Blood Trace-intact (Negative); Clarity Clear (Clear); Glucose Negative (Negative); Ketones 80 mg/dL (Negative); Leukocyte Esterase Negative (Negative); Nitrite Negative (Negative); Specific Gravity >= 1.030 (1.005-1.025); Urobilinogen 0.2 EU/dL (Up TO 0.2)
[2022-05-12 19:44] LABS: RBC 0-2 HPF (0-2); WBC Negative HPF (0-5)
[2022-05-12 19:45] LABS: Bacteria Negative HPF (Negative); C & S Indicated? No; Crystals Negative HPF (Negative); Epithelial Cells Negative HPF (Negative); Mucus Negative (Negative)
[2022-05-12 19:47] LABS: Abs Immature Grans 0.04 10^3/uL (0.0-0.06); Absolute Basophil Count 0.01 10^3/uL (0.0-0.2); Absolute Lymphocyte Count 1.05 10^3/uL (1.2-3.4); Absolute Monocyte Count 1.55 10^3/uL (0.1-0.8); Basophils % 0.1; HCT 48.2 % (40.0-50.0); HGB 16.8 g/dL (13.5-17.5); Immature Grans % 0.4; Lymphocytes % 9.3; MCH 31.8 pg (27.0-33.0); MCHC 34.9 % (32.0-36.0); MCV 91 fL (80-95); MPV 9.2 fL (8.0-11.0); Monocytes % 13.7; Neutrophils % 76.5; Platelet Count 227 10^3/uL (130-400); RBC 5.29 10^6/uL (4.36-5.78); RDW 12.9 % (11.8-14.1); RDW-SD 43.1 fL
[2022-05-12 19:48] LABS: Absolute Neutrophil Count 8.64 10^3/uL (1.2-6.7)
[2022-05-12 20:06] LABS: Diff Comment Agrees w/ Instrument; RBC Morphology Normal
[2022-05-12 20:14] LABS: ALT 29 U/L (16-63); AST 13 U/L (15-37); Albumin 3.7 g/dL (3.4-5.0); Alkaline Phosphatase 93 U/L (46-116); Anion Gap 11.8 mmol/L (3-11); BUN 24 mg/dL (7-18); Bilirubin, Total 1.2 mg/dL (0.2-1.0); CO2 25.2 mmol/L (21.0-32.0); CREATININE 1.6 mg/dL (0.70-1.30); Chloride 98 mmol/L (98-107); Estimated GFR 46.64 (mL/min/1.73m2); Glucose 93 mg/dL (74-106); Sodium 135 mmol/L (136-145)
[2022-05-12 20:24] LABS: Total Protein 8.2 g/dL (6.4-8.2)
[2022-05-12] MEDS: HYDROmorphone 2 MG/ML SYR 0.5 MG IVP (21:20)
[2022-05-12] MEDS: Normal Saline 1,000 ML 150 ML IV (21:20)
--- NOTE | 2022-05-12 22:33 | W.ED.GENAD ---
Discharge Plan Disposition Patient Disposition: [facility] INPATIENT Condition: Stable Discharge Details Clinical Impression: Kidney stone on left side Admit Date/Time: 05/13/22 00:36 Admit Provider: Deandre Pedroza Attending Provider: Deandre Pedroza Primary Care Provider: Nishi Mckinley ED Provider: Neftaly Ricks Discharge Data Discharge Date/Time-TO BE ENTERED AT DEPARTURE: 05/13/22 01:15 Medical Decision Making Patient presenting to the emergency department for chief complaint of fever and chills and worsening left flank pain. Patient was seen yesterday in the emergency department diagnosed with left kidney stone. He states he has been taking acetaminophen but is noted some sweating, some chills, and a slowly rising temp even with taking acetaminophen temp is been 99.7. He also endorses generalized malaise and nausea. He was instructed if he becomes febrile at all that he should return to the emergency department. Physical exam shows left CVA tenderness otherwise unremarkable exam with stable vital signs. Did review previous notes and does show that patient has a kidney stone with radiologist interpretation from yesterday scan showing 6-7 millimeter obstructing calculus at the upper left ureter UPJ level with mild dilatation of the collecting system above this level, this superimposed upon parapelvic cysts (as better seen on the prior contrast infused study of 09/17/2021). There also additional remaining calculi in the lower pole of the left kidney, similar size. There are no calculi in the mid-lower ureter although there is some streaking around the ureter implying that there has been some trauma to the ureter, most probably coming from the level of the UPJ. We will plan on repeating patient's labs, addressing patient's pain, and giving some IV fluids. We will also page urology to see if they are able to consult on patient as I feel that patient has high potential for admission. Reviewed patient's labs which show a continued leukocytosis with evidence of shift but slightly improved from yesterday. CMP reveals a slightly elevated anion gap at 11.8, BUN of 24 and creatinine of 1.6 with a GFR of 46. This is also similar to yesterday's labs. Repeat urinalysis shows high specific gravity with ketones intact trace blood and small amount of bilirubin. Patient is negative for nitrates and leukocyte Estrace with negative bacteria. Given that there is some noted streaking around the ureter with concerning of trauma we will start patient on ceftriaxone. Was unable to get a hold of urology. Urologist is available tomorrow morning and I do not feel that patient requires transfer to tertiary care center at this point so we will plan on is admitting to hospitalist for overnight monitoring with urology consult tomorrow. Hospitalist requesting urology consult prior to admission so we will call [facility] given that Case was discussed with him yesterday given findings of kidne/ ureteral damage. Spoke to [facility] urologist Dr Choi . After full discussion of case he recommended urgent stenting but did not state that he felt that patient needed to emergently be transferred. He recommended continue monitoring of patient and to call back if patient becomes febrile or show signs of decompensation. Patient vital signs remained stable with no noted tachycardia, no fever, no hypotension. Discussed case again with hospitalist who agreed to have patient admitted for further monitoring and urology consult in the morning unless patient becomes febrile or worsening condition. Imaging Data Radiologic Study: Imaging: CT Scan Radiologist's impression: FINDINGS: VISUALIZED LUNG BASES: See separate chest CT report performed today.. No pleural effusions. ABDOMEN: There is no ascites. LIVER: There are 3 adjacent cysts in the left hepatic lobe again noted measuring up to 1.2 cm size. Smaller subcapsular hypodensity in the right hepatic lobe also noted, also benign appearance, either cyst or small hemangioma. Another similar finding medially in the right hepatic lobe is unchanged. No new ominous focal hepatic lesions. No obvious dilatation of intrahepatic ducts. GALLBLADDER/BILIARY: No obvious gallbladder pathology. CBD is not dilated. PANCREAS: No evidence of pancreatic mass nor dilatation of the pancreatic duct. SPLEEN: Spleen is not enlarged. No obvious intrasplenic lesions. ADRENALS: There are no significant adrenal masses. KIDNEYS:Parapelvic cysts are again noted bilaterally. However, on the left side the previously present intrarenal calculus has now descended to the UPJ level and is causing ipsilateral hydronephrosis above this level. Mild perinephric streaking. Additional similar size calculi are seen in the lower pole calices of the ipsilateral left kidney. The culprit calculus measures approximately 6-7 millimeters. There are no calculi in the opposite-right kidney. There is streaking around the left ureter. No other calculi seen lower down in the left ureter nor in the urinary bladder and ureterovesical junctions.. ABDOMINAL AORTA: Abdominal aorta is not enlarged. LYMPH NODES: There is no retroperitoneal nor paraaortic adenopathy. ABDOMINAL WALL: Fat only containing anterior abdominal wall umbilical hernia. No inguinal hernias. GI: There is no evidence of bowel obstruction, free air, nor abscess. PELVIS: LYMPH NODES: There is no intrapelvic nor inguinal adenopathy. GI: No evidence of appendicitis.No evidence of sigmoid diverticulitis. URINARY BLADDER: No calculi nor obvious masses evident REPRODUCTIVE: Unremarkable OSSEOUS: No significant osseous lesions. No fractures evident. IMPRESSION: 1. There is a 6-7 millimeter obstructing calculus at the upper left ureter UPJ level with mild dilatation of the collecting system above this level, this superimposed upon parapelvic cysts (as better seen on the prior contrast infused study of 09/17/2021). There also additional remaining calculi in the lower pole of the left kidney, similar size. There are no calculi in the mid-lower ureter although there is some streaking around the ureter implying that there has been some trauma to the ureter, most probably coming from the level of the UPJ. 2. There are no calculi in the opposite-right kidney nor in the right ureter and there are no calculi in the urinary bladder. 3. Other findings as above HPI General Mode of arrival: ambulatory. Date/Time Provider Initiated Documentation: 05/12/22 19:08. Limitations to Documentation: no limitations. Information obtained by: patient, RN notes reviewed and old records reviewed. History of Present Illness 66 year old M presents to the emergency department with the chief complaint of Worsening left flank pain and fever, described as moderate and similar to prior episodes, with intensity rated at 7. Quality is described as aching, and is localized to the back. Patient abdomen. Patient started experiencing this day(s) (1) and it has been constant. No relieving factors improve symptom(s), No exacerbating factors reported . Patient notes fever/chills and malaise. Patient did receive the following treatments prior to arrival, other (Acetaminophen) Related Data Home Medications Medication Instructions Recorded Confirmed albuterol sulfate 90 mcg/actuation 2 puff inhalation Q6H PRN 04/29/21 05/12/22 aerosol inhaler (ProAir HFA) atorvastatin 20 mg tablet 20 mg PO QHS 04/29/21 05/12/22 fluticasone 100 mcg-salmeterol 50 1 inh inhalation BID 01/14/22 05/12/22 mcg/dose blistr powdr for inhalation (Advair Diskus) tamsulosin 0.4 mg capsule (Flomax) 0.4 mg PO DAILY #10 caps 05/11/22 05/12/22 sulfamethoxazole 800 1 tab PO Q12H antibiotic #10 tabs 05/13/22 mg-trimethoprim 160 mg tablet (Bactrim DS) tramadol 50 mg tablet 50 mg PO Q6H PRN pain #20 tabs 05/13/22 Previous Rx's Medication Instructions Recorded tamsulosin 0.4 mg capsule (Flomax) 0.4 mg PO DAILY #10 caps 05/11/22 sulfamethoxazole 800 1 tab PO Q12H antibiotic #10 tabs 05/13/22 mg-trimethoprim 160 mg tablet (Bactrim DS) tramadol 50 mg tablet 50 mg PO Q6H PRN pain #20 tabs 05/13/22 Allergies Allergy/AdvReac Type Severity Reaction Status Date / Time No Known Drug Allergies Allergy Unknown Unverified 05/12/22 21:37 dust and dust mites Allergy Uncoded 05/12/22 21:37 General Stated Complaint: Nk/Back Pain JUSTIN: 3 Review of Systems Constitutional Constitutional: Reports chills, Reports excessive sweating, Reports fever(s) and Reports malaise ENT Ears, Nose, Mouth, and Throat: Denies neck pain Cardiovascular Cardiovascular: Denies chest pain and Denies dyspnea Respiratory Respiratory: Denies cough and Denies dyspnea Gastrointestinal Gastrointestinal: Denies abdominal pain, Denies diarrhea, Reports nausea and Denies vomiting Genitourinary Genitourinary: Denies dysuria and Reports flank pain Musculoskeletal Musculoskeletal: Reports back pain and Denies neck pain Integumentary/Breasts Skin/Breast: Denies rash Endocrine Endocrine: Reports excessive sweating PFSH All Active Problems (Updated 05/13/22 @ 07:27 by Eloy Isaac MD) Calculus of proximal left ureter (Acute) Kidney stone on left side (Acute) Dyspnea on exertion (Acute) Pulmonary infiltrate (Acute) Asthma (Chronic) Pulmonary embolism and infarction (Acute) Achilles rupture, left (Acute) Medical History (Updated 05/13/22 @ 07:27 by Eloy Isaac MD) 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) Asthma Elevated PSA Hyperlipidemia Partial tear of left rotator cuff (03/01/18) Polyarthralgia Ruptured Achilles tendon due to trauma Shoulder pain, bilateral Surgical History (Updated 05/13/22 @ 10:01 by Eloy Isaac MD) H/O arthroscopy S/P cystoscopy with ureteral stent placement Social History Smoking/Tobacco Use Status: Never Smoking risk assessment performed?: Yes Alcohol Intake: current Alcohol Intake frequency: holidays/special occasions only Alcohol type: beer Drug use: Never Do you feel safe at home: Yes Do you feel safe in your relationship?: Yes Exam Const General: cooperative and no acute distress Orientation: alert, awake and oriented x3 Resp Effort & Inspection: normal respiratory effort and able to speak in complete sentences Auscultation: clear to auscultation bilaterally Cardio Rate: regular rate Rhythm: regular rhythm Heart Sounds: S1 normal and S2 normal GI Palpation: nontender Back/Spine/Pelvis Back: CVA tenderness (on left ) Neuro General: patient alert, patient awake and patient oriented x3 Extrem General: capillary refill normal Course Vital Signs Vital signs: Vital Signs Temperature 37.1 C 05/12/22 18:38 Pulse 88 05/12/22 18:38 Respiratory Rate 18 05/12/22 18:38 Blood Pressure 148/75 H 05/12/22 18:38 Pulse Oximetry 94 05/12/22 18:38 Temperature 37.1 C 05/12/22 18:38 Temperature Source Temporal Artery Scan 05/12/22 18:38 Pulse 88 05/12/22 18:38 Pulse 84 05/12/22 22:20 Respiratory Rate 17 05/12/22 22:20 Respiratory Effort 05/12/22 20:41 Blood Pressure 148/75 H 05/12/22 18:38 Blood Pressure Position Sitting 05/12/22 18:38 Pulse Oximetry 92 05/12/22 22:20 Oxygen Delivery Method Room Air 05/12/22 18:38 Oxygen Flow Rate 0 05/12/22 18:38 Lab/Test Results Lab/Test Results: Laboratory Tests Range/Units 05/12/22 05/12/22 05/12/22 19:25 19:35 19:35 WBC (4.4-10.8) 10^3/uL 11.30 H RBC (4.36-5.78) 10^6/uL 5.29 Hgb (13.5-17.5) g/dL 16.8 Hct (40.0-50.0) % 48.2 MCV (80-95) fL 91 MCH (27.0-33.0) pg 31.8 MCHC (32.0-36.0) % 34.9 RDW (11.8-14.1) % 12.9 Plt Count (130-400) 10^3/uL 227 MPV (8.0-11.0) fL 9.2 Immature Gran % 0.4 Neutrophils % 76.5 Lymphocytes % 9.3 Monocytes % 13.7 Eosinophils % 0.0 Basophils % 0.1 Nucleated RBC % (0.0-0.3) % 0.0 Absolute Neutrophils (1.2-6.7) 10^3/uL 8.64 H Absolute Lymphocytes (1.2-3.4) 10^3/uL 1.05 L Absolute Monocytes (0.1-0.8) 10^3/uL 1.55 H Absolute Eosinophils (0.0-0.7) 10^3/uL 0.00 Absolute Basophils (0.0-0.2) 10^3/uL 0.01 RBC Morphology Normal Sodium (136-145) mmol/L 135 L Potassium (3.5-5.1) mmol/L 4.0 Chloride (98-107) mmol/L 98 Carbon Dioxide (21.0-32.0) mmol/L 25.2 Anion Gap (3-11) mmol/L 11.8 H BUN (7-18) mg/dL 24 H Creatinine (0.70-1.30) mg/dL 1.6 H Est GFR (CKD-EPI 2020) (mL/min/1.73m2) 46.64 Glucose (74-106) mg/dL 93 Calcium (8.5-10.1) mg/dL 9.0 Total Bilirubin (0.2-1.0) mg/dL 1.2 H AST (15-37) U/L 13 L ALT (16-63) U/L 29 Alkaline Phosphatase (46-116) U/L 93 Total Protein (6.4-8.2) g/dL 8.2 Albumin (3.4-5.0) g/dL 3.7 Urine Color (Yellow) Yellow Urine Clarity (Clear) Clear Urine pH (5-8) 6.0 Ur Specific [place] (1.005-1.025) >= 1.030 H Urine Protein (Negative) mg/dL Negative Urine Ketones (Negative) mg/dL 80 H Urine Blood (Negative) Trace-intact H Urine Nitrite (Negative) Negative Urine Bilirubin (Negative) Small H Urine Urobilinogen (Up TO 0.2) EU/dL 0.2 Ur Leukocyte Esterase (Negative) Negative Urine RBC (0-2) HPF 0-2 Urine WBC (0-5) HPF Negative Ur Epithelial Cells (Negative) HPF Negative Urine Crystals (Negative) HPF Negative Urine Bacteria (Negative) HPF Negative Urine Mucus (Negative) Negative Ur Culture Indicated? No Urine Glucose (Negative) mg/dL Negative
[2022-05-12 23:12] LABS: Source Nasal/Nares
[2022-05-12 23:42] LABS: COVID-19 PCR Negative (Negative)
[2022-05-13] VITALS (18 sets, daily range): BP systolic 117–153; BP diastolic 68–97; PULSE 65–92; RESP 13–22; TEMP 36.1–38.1; O2SAT 92–98; BMI 25.8
--- NOTE | 2022-05-13 00:25 | HPE_ITS ---
Date of service: 05/13/22 Time of Service: 00:25 Assessment and Plan Assessment and plan (1) Kidney stone on left side: Status: Acute Assessment and plan: Kidney stone. At 7 mm unlikely to pass. Will continue IVF, prn analgesics. Will add dose Flomax and single dose toradol. Will consult urology and leave NPO. No signs infection at this time, will monitor. History of Present Illness History of Present Illness Chief Complaint: flank pain Narrative: 66 male reports episode of left testicular pain 2 days ago, then later developed left mid-abdominal/flank pain. Seen here 1 day [facility], 6-7 mm stone noted left ureter at level of UPJ, with mild hydronephrosis. Sent home with prn analgesics. Returns to day because of self-reprorted temp of 99.6. Here in ER imaging was not repeated. Work up of note for absence of fever, white count 11.3 and urinalysis showing neither pyuria nor hematuria. Has received Dilaudid 0.5 with effect. Case reviewed with [facility] Urology advises supportive measures and consult urology in AM. I was asked to evaluate for admission. ASt present patient is requesting pain med. Denies nausea, fever or chills at this time. 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) Asthma Elevated PSA Hyperlipidemia Partial tear of left rotator cuff (03/01/18) Polyarthralgia Ruptured Achilles tendon due to trauma Shoulder pain, bilateral Social History Smoking/Tobacco Use Status: Never Smoking risk assessment performed?: Yes Alcohol Intake: current Alcohol Intake frequency: holidays/special occasions only Alcohol type: beer Drug use: Never Do you feel safe at home: Yes Do you feel safe in your relationship?: Yes Meds Allergies and Home Medications Allergies Allergy/AdvReac Type Severity Reaction Status Date / Time No Known Drug Allergies Allergy Unknown Unverified 05/12/22 21:37 dust and dust mites Allergy Uncoded 05/12/22 21:37 Home Medications Medication Instructions Recorded Confirmed Type albuterol sulfate 90 mcg/actuation 2 puff inhalation Q6H PRN 04/29/21 05/12/22 History aerosol inhaler (ProAir HFA) atorvastatin 20 mg tablet 20 mg PO QHS 04/29/21 05/12/22 History fluticasone 100 mcg-salmeterol 50 1 inh inhalation BID 01/14/22 05/12/22 History mcg/dose blistr powdr for inhalation (Advair Diskus) tamsulosin 0.4 mg capsule (Flomax) 0.4 mg PO DAILY #10 caps 05/11/22 05/12/22 Rx Exam Narrative Exam Narrative: 148/75, 92, 37.1, 19, 92% RA. HEENT atraumatic; neck supple; lungs clear; heart RRR; abdomen soft, mild tenderness left mid-abdomen w/o rebound; mild left CVAT; extremities w/o edema; neuro Ox3, moves all 4s Results Labs Result diagrams: 05/12/22 19:35 05/12/22 19:35 Labs: Laboratory Results - last 24 hr 05/12/22 05/12/22 05/12/22 19:25 19:35 19:35 WBC 11.30 H RBC 5.29 Hgb 16.8 Hct 48.2 MCV 91 MCH 31.8 MCHC 34.9 RDW 12.9 Plt Count 227 MPV 9.2 Immature Gran % 0.4 Neutrophils % 76.5 Lymphocytes % 9.3 Monocytes % 13.7 Eosinophils % 0.0 Basophils % 0.1 Nucleated RBC % 0.0 Absolute Neutrophils 8.64 H Absolute Lymphocytes 1.05 L Absolute Monocytes 1.55 H Absolute Eosinophils 0.00 Absolute Basophils 0.01 RBC Morphology Normal Sodium 135 L Potassium 4.0 Chloride 98 Carbon Dioxide 25.2 Anion Gap 11.8 H BUN 24 H Creatinine 1.6 H Est GFR (CKD-EPI 2020) 46.64 Glucose 93 Calcium 9.0 Total Bilirubin 1.2 H AST 13 L ALT 29 Alkaline Phosphatase 93 Total Protein 8.2 Albumin 3.7 Urine Color Yellow Urine Clarity Clear Urine pH 6.0 Ur Specific [place] >= 1.030 H Urine Protein Negative Urine Ketones 80 H Urine Blood Trace-intact H Urine Nitrite Negative Urine Bilirubin Small H Urine Urobilinogen 0.2 Ur Leukocyte Esterase Negative Urine RBC 0-2 Urine WBC Negative Ur Epithelial Cells Negative Urine Crystals Negative Urine Bacteria Negative Urine Mucus Negative Ur Culture Indicated? No Urine Glucose Negative COVID-19 Source SARS-CoV-2 (PCR) 05/12/22 23:10 WBC RBC Hgb Hct MCV MCH MCHC RDW Plt Count MPV Immature Gran % Neutrophils % Lymphocytes % Monocytes % Eosinophils % Basophils % Nucleated RBC % Absolute Neutrophils Absolute Lymphocytes Absolute Monocytes Absolute Eosinophils Absolute Basophils RBC Morphology Sodium Potassium Chloride Carbon Dioxide Anion Gap BUN Creatinine Est GFR (CKD-EPI 2020) Glucose Calcium Total Bilirubin AST ALT Alkaline Phosphatase Total Protein Albumin Urine Color Urine Clarity Urine pH Ur Specific [place] Urine Protein Urine Ketones Urine Blood Urine Nitrite Urine Bilirubin Urine Urobilinogen Ur Leukocyte Esterase Urine RBC Urine WBC Ur Epithelial Cells Urine Crystals Urine Bacteria Urine Mucus Ur Culture Indicated? Urine Glucose COVID-19 Source Nasal/Nares SARS-CoV-2 (PCR) Negative Last Vital Signs Temp 37.1 C 05/12/22 18:38 Pulse 88 05/12/22 18:38 Resp 19 05/12/22 23:40 BP 148/75 H 05/12/22 18:38 Pulse Ox 92 05/12/22 23:40
[2022-05-13] MEDS: HYDROmorphone 2 MG/ML SYR IVP (00:50)
[2022-05-13] MEDS: Tamsulosin 0.4 MG CAPCR PO ×2 (00:58→08:06)
[2022-05-13] MEDS: Normal Saline 1,000 ML 150 ML IV ×2 (01:37→08:07)
[2022-05-13] MEDS: Ketorolac 30 MG/ML VIAL IVP (01:59)
[2022-05-13] MEDS: ACETAMINOPHEN 1,000 MG/100 ML BTL 400 MG IVPB (01:59)
[2022-05-13] MEDS: Atorvastatin 20 MG TAB PO (02:00)
--- NOTE | 2022-05-13 07:21 | UCONE_ITS ---
Date of service: 05/13/22 Time of Service: 07:21 Assessment and Plan Assessment and plan (1) Calculus of proximal left ureter: Status: Acute (2) Kidney stone on left side: Status: Acute Assessment and plan: With the presence of a fever, I believe we at least need to place a left ureteral stent to relieve any obstruction that is present. Depending on the l ocation of his left ureteral stone, we may be able to address the ureteral stone today, but I certainly would not attempt to deal with his kidney stones. I suspect that we will need a staged procedure with follow-up ureteroscopy to treat his kidney stones and possibly his ureteral stone (if it does not pass on its own or if it is not retrieved today). I would expect that the patient will be able to go home with oral antibiotics following the procedure. History of Present Illness History of Present Illness Chief Complaint: Left Ureteral Stone Narrative: This is a 66-year-old gentleman who is usually followed in our office for an elevated PSA. He has not been diagnosed with prostate cancer. He has a history of a pulmonary embolism, so he had a CT of the chest abdomen and pelvis back in August. At that time, he had a single nonobstructing stone in the lower pole of the left kidney. He presented to our emergency department over the weekend with left renal colic. A noncontrast CT scan showed a stone in the left upper ureter along with 2 additional nonobstructing stones in the lower pole of the left kidney. He was not showing any signs of sepsis, so he was discharged with conservative management. He returned to the ED last evening with persistent pain and a low- grade fever. His urinalysis still showed no obvious infection and no clinical signs of sepsis. He was admitted for IV hydration, antibiotics and analgesics. He had a documented fever over 38 since his admission. His pain is actually improved and he is quite comfortable at this time. He has no known history of urinary tract infections. He has no known metabolic issues such as gout or hyperparathyroidism. Review of Systems Narrative: No fevers or chills No vision change or dysphasia No diabetes or thyroid dysfunction Hx asthma. No hemoptysis No chest pain or palpitations No nausea, vomiting, hepatitis, ulcers, jaundice No seizures, strokes or peripheral neuropathy Hx PE with no known DVT. 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 Tmax 38.1 His abdomen is soft with no peritoneal signs. There is no CVA tenderness. He is awake and alert I reviewed his CT scan from August of this year along with his most recent CT. He now appears to have an obstructing left proximal ureteral stone that I measure in the 7 to 8 mm range. There are also nonobstructing stones in the lower pole of the left kidney. I believe I can see the stones on the KUB portion of his CT, so they are likely calcium based rather than uric acid based. Results Last Vital Signs Temp 36.5 C 05/13/22 04:18 Pulse 90 05/13/22 01:25 Resp 22 05/13/22 01:25 BP 153/85 H 05/13/22 01:25 Pulse Ox 95 05/13/22 01:25 Labs Result diagrams: 05/12/22 19:35 05/12/22 19:35 Labs: Laboratory Results - last 24 hr 05/12/22 05/12/22 05/12/22 19:25 19:35 19:35 WBC 11.30 H RBC 5.29 Hgb 16.8 Hct 48.2 MCV 91 MCH 31.8 MCHC 34.9 RDW 12.9 Plt Count 227 MPV 9.2 Immature Gran % 0.4 Neutrophils % 76.5 Lymphocytes % 9.3 Monocytes % 13.7 Eosinophils % 0.0 Basophils % 0.1 Nucleated RBC % 0.0 Absolute Neutrophils 8.64 H Absolute Lymphocytes 1.05 L Absolute Monocytes 1.55 H Absolute Eosinophils 0.00 Absolute Basophils 0.01 RBC Morphology Normal Sodium 135 L Potassium 4.0 Chloride 98 Carbon Dioxide 25.2 Anion Gap 11.8 H BUN 24 H Creatinine 1.6 H Est GFR (CKD-EPI 2020) 46.64 Glucose 93 Calcium 9.0 Total Bilirubin 1.2 H AST 13 L ALT 29 Alkaline Phosphatase 93 Total Protein 8.2 Albumin 3.7 Urine Color Yellow Urine Clarity Clear Urine pH 6.0 Ur Specific [place] >= 1.030 H Urine Protein Negative Urine Ketones 80 H Urine Blood Trace-intact H Urine Nitrite Negative Urine Bilirubin Small H Urine Urobilinogen 0.2 Ur Leukocyte Esterase Negative Urine RBC 0-2 Urine WBC Negative Ur Epithelial Cells Negative Urine Crystals Negative Urine Bacteria Negative Urine Mucus Negative Ur Culture Indicated? No Urine Glucose Negative COVID-19 Source SARS-CoV-2 (PCR) 05/12/22 23:10 WBC RBC Hgb Hct MCV MCH MCHC RDW Plt Count MPV Immature Gran % Neutrophils % Lymphocytes % Monocytes % Eosinophils % Basophils % Nucleated RBC % Absolute Neutrophils Absolute Lymphocytes Absolute Monocytes Absolute Eosinophils Absolute Basophils RBC Morphology Sodium Potassium Chloride Carbon Dioxide Anion Gap BUN Creatinine Est GFR (CKD-EPI 2020) Glucose Calcium Total Bilirubin AST ALT Alkaline Phosphatase Total Protein Albumin Urine Color Urine Clarity Urine pH Ur Specific [place] Urine Protein Urine Ketones Urine Blood Urine Nitrite Urine Bilirubin Urine Urobilinogen Ur Leukocyte Esterase Urine RBC Urine WBC Ur Epithelial Cells Urine Crystals Urine Bacteria Urine Mucus Ur Culture Indicated? Urine Glucose COVID-19 Source Nasal/Nares SARS-CoV-2 (PCR) Negative
[2022-05-13] MEDS: Budesonide/Formoterol 80/4.5 6.9 GM 60 PUFF INH IH (07:58)
--- NOTE | 2022-05-13 08:12 | ANES.PREOP_ITS ---
General Info Date of Service Date Performed: 05/13/22 Height: 5 ft 9 in Weight: 79.379 kg Body Mass Index (BMI): 25.8 Surgical Procedure: Operation Date: 05/13/22 09:10 Proposed Procedure Side Surgeon p Cystoscopy/Laser/Retrograde/Ureteroscopy/ Stent Placement Left Eloy Isaac MD Meds Allergies and Home Medications Allergies Allergy/AdvReac Type Severity Reaction Status Date / Time No Known Drug Allergies Allergy Unknown Unverified 05/12/22 21:37 dust and dust mites Allergy Uncoded 05/12/22 21:37 Home Medication Medication Instructions Recorded albuterol sulfate 90 mcg/actuation 2 puff inhalation Q6H PRN 04/29/21 aerosol inhaler (ProAir HFA) atorvastatin 20 mg tablet 20 mg PO QHS 04/29/21 fluticasone 100 mcg-salmeterol 50 1 inh inhalation BID 01/14/22 mcg/dose blistr powdr for inhalation (Advair Diskus) tamsulosin 0.4 mg capsule (Flomax) 0.4 mg PO DAILY #10 caps 05/11/22 Current Visit Medications: Current Medications Generic Name Dose Route Start Last Admin Trade Name Freq PRN Reason Stop Dose Admin Albuterol Sulfate 2 puff 05/13/22 00:42 Albuterol Hfa 8 Gm 60 Puff Inh IH Q6H PRN PRN Atorvastatin Calcium 20 mg 05/13/22 02:00 05/13/22 02:00 Atorvastatin 20 Mg Tab PO 20 mg QPM GIANLUCA Administration Budesonide/Formoterol Fumarate 1 puff 05/13/22 08:30 05/13/22 07:58 Budesonide/Formoterol 80/4.5 6.9 Gm 60 Puff Inh IH 1 puff BID GIANLUCA Administration Device 1 each 05/13/22 01:00 Inhaler, Assist Device MC DIRECTED GIANLUCA Dimethicone/Zinc Oxide 0 gm 05/13/22 00:36 Rahul Protect Cream 142 Gm Tube TP PRN PRN Hydromorphone HCl 0.5 - 1 mg 05/13/22 01:45 Hydromorphone 2 Mg/Ml Syr IVP Q3H PRN PRN Sodium Chloride 500 mls @ 0 mls/hr 05/12/22 21:14 Saline 500ml Bag IV PRN PRN As Directed Acetaminophen 1,000 mg in 100 mls @ 400 mls/hr 05/13/22 00:40 05/13/22 01:59 Ofirmev IVPB 400 mls/hr Q6H PRN PRN Administration Sodium Chloride 1,000 mls @ 150 mls/hr 05/13/22 00:45 05/13/22 08:07 Saline 1000ml Bag IV 150 mls/hr INFUSION GIANLUCA Administration Ceftriaxone Sodium/Dextrose 1 gm in 50 mls @ 100 mls/hr 05/13/22 20:00 Rocephin IVPB Q24H GIANLUCA IV Miscellaneous Supplies 1 each 05/12/22 21:15 Iv Access IV DIRECTED GIANLUCA Ketorolac Tromethamine 15 mg 05/13/22 08:02 Ketorolac 15 Mg/Ml Vial IVP 05/18/22 08:01 Q6H PRN PRN Lorazepam 1 mg 05/13/22 00:40 Lorazepam 1 Mg Tab PO HS PRN PRN Ondansetron HCl 4 mg 05/13/22 00:36 Ondansetron 4 Mg/2 Ml Vial IVP Q4H PRN PRN Sodium Chloride 0 ml 05/12/22 21:14 Normal Saline Flush 10 Ml Syr IVP PRN PRN Tamsulosin HCl 0.4 mg 05/13/22 08:30 05/13/22 08:06 Tamsulosin 0.4 Mg Capcr PO 0.4 mg DAILY GIANLUCA Administration PFSH Active Problems Active Problems: Problem Status Onset Code Calculus of proximal left ureter N20.1 Kidney stone on left side N20.0 Dyspnea on exertion R06.09 Pulmonary infiltrate R91.8 Asthma J45.909 Pulmonary embolism and infarction I26.99 Achilles rupture, left S86.012A Medical History Medical History 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) Asthma Elevated PSA Hyperlipidemia Partial tear of left rotator cuff (03/01/18) Polyarthralgia Ruptured Achilles tendon due to trauma Shoulder pain, bilateral Tobacco Smoking/Tobacco Use Status: Never Alcohol Alcohol Intake: current Alcohol intake frequency: holidays/special occasions on ly Alcohol type: beer Substance Use Substance use: Never Vital Signs and Lab Results Vital Signs Most Recent Vital Signs in EMR: Most Recent Vital Signs Temp Pulse Resp BP Pulse Ox 37.1 C 80 18 136/78 93 05/13/22 07:25 05/13/22 07:25 05/13/22 07:25 05/13/22 07:25 05/13/22 07:25 Lab Results Result Diagrams: 05/12/22 19:35 05/12/22 19:35 Blood Type / Crossmatch: No Data to Display Complete Blood Count: White Blood Count 11.30 10^3/uL (4.4-10.8) H 05/12/22 19:35 Red Blood Count 5.29 10^6/uL (4.36-5.78) 05/12/22 19:35 Hemoglobin 16.8 g/dL (13.5-17.5) 05/12/22 19:35 Hematocrit 48.2 % (40.0-50.0) 05/12/22 19:35 Platelet Count 227 10^3/uL (130-400) 05/12/22 19:35 Complete Metabolic Panel: Sodium Level 135 mmol/L (136-145) L 05/12/22 19:35 Potassium Level 4.0 mmol/L (3.5-5.1) 05/12/22 19:35 Chloride Level 98 mmol/L (98-107) 05/12/22 19:35 Carbon Dioxide Level 25.2 mmol/L (21.0-32.0) 05/12/22 19:35 Blood Urea Nitrogen 24 mg/dL (7-18) H 05/12/22 19:35 Creatinine 1.6 mg/dL (0.70-1.30) H 05/12/22 19:35 Calcium Level 9.0 mg/dL (8.5-10.1) 05/12/22 19:35 Albumin 3.7 g/dL (3.4-5.0) 05/12/22 19:35 Glucose Level 93 mg/dL (74-106) 05/12/22 19:35 Liver Function Panel: Alanine Aminotransferase (ALT/SGPT) 29 U/L (16-63) 05/12/22 19: 35 Aspartate Amino Transf (AST/SGOT) 13 U/L (15-37) L 05/12/22 19: 35 Coagulation Panel: No Data to Display Cardiac Panel: No Data to Display Arterial Blood Gas: No Data to Display Venous Blood Gas: 2 No Data to Display Pancreas Panel: No Data to Display Thyroid Panel: No Data to Display Infectious Disease: Coronavirus (COVID-19)(PCR) Negative (Negative) 05/12/22 23:10 Coronavirus 2019 Source Nasal/Nares 05/12/22 23:10 Blood Cultures: No Data to Display Toxicology Panel: No Data to Display Imaging and Studies Imaging and Studies Study information below may be from another EMR and interpreted by another provider. Please see original notes in EMR for more complete details. EKG Summary: 09/21: sinus rhythm. [facility] Anesthesia Assessment and Plan Anesthesia History Personal History: No History of Anesthesia Complications Family History: No Family History of Anesthesia Complications Exercise Tolerance Exercise Tolerance: Metabolic Equivalents>4 Cardiac & Pulmonary Exam Cardiac Exam: Normal S1/S2 Heart Sounds Pulmonary Exam: Clear Bilateral Breath Sounds Implantable Cardiac Device Does patient have a Pacemaker or an ICD?: No Airway Exam Known Difficult Airway: No Mallampati Class: 3 Mouth Opening: Narrow (< 3cm) Thyromental Distance: Greater than 3 cm Neck Range of Motion: Full ROM Neck Circumference: Normal Teeth Condition: Normal Dentition and Loose or Chipped (miltiple chips, denies loose) ASA Classification ASA Score: ASA 3 Emergency Case?: Yes NPO Status NPO Status: NPO Clears >2 hours, Solids >8 hours Anesthesia Plan Resuscitation Status: Full Code Anesthesia Technique: General Anesthesia Airway Planned: LMA Monitors Used: Standard Monitors Preoperative Comments:: 66 yo male inpt admitted for kidney stones and hydronephrosis. Pain is currently well controlled. has received his advair, tamsulosin. Also ketorolac @ 02 and hydromorphone at 0100 Sig PMHX: PE (09/21, 6 months of anticoag), asthma (sees alber, on albut, advair), never smoker, occ EtOH. Discussed spinal vs GA, would like GA.
--- NOTE | 2022-05-13 08:15 | DI.RAD_ITS ---
Exam(s) XR RETROGRADE IN OR EXAM: XR RETROGRADE IN OR CLINICAL HISTORY: Calculus of proximal left ureter. TECHNIQUE: 2D and realtime digital imaging was performed. FINDINGS: Fluoroscopy was utilized by Dr. Isaac during the retrograde evaluation of the renal collecting system . Please refer to the procedure report for complete details. Fluoro time 18.8 seconds RADIATION DOSE DELIVERED: radha Steele=4.19 mGy
--- NOTE | 2022-05-13 09:03 | INITIAL_ITS ---
- If Service Date Differs Date of service: 05/13/22 Time of Service: 09:03 Care Management Initial Assess REASON FOR HOSPITALIZATION:: Kidney stone on left side PAST MEDICAL HISTORY/PAST SURGICAL HISTORY:: All Active Problems . Kidney stone on left side (Acute). Dyspnea on exertion (Acute). Pulmonary infiltrate (Acute). Asthma (Chronic). Pulmonary embolism and infarction (Acute). Achilles rupture, left (Acute). Medical History . 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). Asthma. Elevated PSA. Hyperlipidemia. Partial tear of left rotator cuff (03/01/18). Polyarthralgia. Ruptured Achilles tendon due to trauma. Shoulder pain, bilateral PREVIOUS FUNCTIONAL STATUS/SOCIAL/FAMILY SUPPORTS:: Horacio lives in [facility] th his [place]. CURRENT FUNCTIONAL STATUS:: Horacio was discharge after his surgical intervention. Information for this interview is obtained via chart review. ADVANCE DIRECTIVES:: Not on file at [facility]. Has patient been provided with info about the portal/API?: Yes Did the patient sign up for the portal?: No CODE STATUS:: Full Code INSURANCE COVERAGE / FINANCIAL ISSUES:: [facility] PRIMARY CARE PHYSICIAN:: Nishi Mckinley POTENTIAL DISCHARGE NEEDS:: Follow up appointments with PCP and Urology etc. PATIENT/FAMILY EDUCATION NEEDS:: Review discharge instructions, limitations, medications and plan to follow up with community providers. ask me three. TRANSPORTATION:: Via private vehicle with family. PLAN:: Horacio went to the OR this morning for surgical intervention with Urology. Anticipate, Horacio will discharge home following the procedure, if medically ready. Horacio will transport via private vehicle with family and follow up with PCP and Urology.
[2022-05-13] MEDS: Lactated Ringers 1,000 ML 30 ML IV (09:04)
[2022-05-13] MEDS: Lidocaine 2% Jelly 6 ML SYR (09:26)
--- NOTE | 2022-05-13 09:43 | ROE_ITS ---
Date of service: 05/13/22 Time of Service: 09:43 Operative Note Operative Note DATE OF PROCEDURE: 05/13/22 PRE-OP DIAGNOSIS: Left ureteral stone POST-OP DIAGNOSIS: same Left renal stones PROCEDURE: cystoscopy, left retrograde pyelogram, insert left ureteral stent SURGEON: Eloy Isaac ANESTHESIA TYPE: Local By Surgeon and General:No Airway Refer to Anesthesia Record ESTIMATED BLOOD LOSS: 5 PATHOLOGY: none sent COMPLICATIONS: None Patient was transported to: PACU Patient's condition: stable Implants: 6 Chinese by 22 to 30 cm left ureteral stent Indications: This is a 66-year-old gentleman who presented to the emergency department recently with left renal colic. He was found to have a proximal left ureteral stone and nonobstructing stones in the lower pole of the left kidney. He was discharged with conservative management, but he returned to the emergency department last evening with a low-grade fever. He presents now for stent placement to relieve his ureteral obstruction and allow any potentially infected urine to drain. Findings: Left ureteral stone had not migrated distally from its initial presentation Procedure Description: The patient was brought to the operating room on 05/13/2022. He was given a dose of preoperative IV Ancef. After successful induction of general anesthesia, he was placed in the dorsal lithotomy position. His genitalia was prepped and draped. 2% Xylocaine jelly was instilled into the urethra to act as a local anesthetic. A 22 Chinese rigid cystoscope was passed through the urethra into the bladder. The urethra and bladder were inspected with 30 degree lens. The pendulous, bulbar and membranous urethra appeared normal in caliber with no strictures. The prostatic urethra showed some lateral lobe enlargement and a slightly elevated bladder neck. No significant median lobe of the prostate was identified. The bladder neck was entered and the bladder mucosa was inspected. Both ureteral orifices appeared normal in location. No blood was seen coming from the right ureteral orifice. The left orifice was cannulated with a 6 Chinese access catheter. Retrograde pyelogram was obtained by injecting Omnipaque through the access catheter under fluoroscopic guidance. A filling defect was outlined in the left proximal ureter. This filling defect corresponded to the previously described location of his ureteral stone. 2 additional filling defects were found in the lower pole calyx consistent with his previously identified renal stones. I passed a guidewire through the access catheter and maneuvered the wire above the level of the stone up into the kidney. I had difficulty passing a dual- lumen catheter above the level of the pelvic brim due to resistance. I passed a second guidewire and removed the dual-lumen catheter. I attempted to pass a ureteral access sheath, but again was unable to advance above the level of the pelvic brim. At that time, we decided to forego the ureteroscopy for his ureteral stone and place a ureteral stent alone. The stent should allow the ureter to dilate and we will come back at another time for a staged procedure to address the ureteral stone (if it has not passed) as well as his renal stones. I chose a 6 Chinese variable length stent and advanced it over the guidewire. The proximal end of the stent was seen in the upper pole calyx and the distal end was seen within the bladder. The patient tolerated this procedure well with no complications. The bladder was emptied and the cystoscope was withdrawn.
--- NOTE | 2022-05-13 09:52 | DSE_ITS ---
Date of service: 05/13/22 Time of Service: 10:00 DS: Diagnosis Discharge Diagnosis (1) Calculus of proximal left ureter: Status: Acute (2) Kidney stone on left side: Status: Acute Discharge Plan Disposition Patient Disposition: HOME Condition: Stable Discharge Details Reason For Visit: Kidney Stone Admit Date/Time: 05/13/22 00:36 Admit Provider: Deandre Pedroza Attending Provider: Deandre Pedroza Primary Care Provider: Nishi Mckinley Hospital Course Hospital Course: The patient was admitted through the emergency department and treated with IV hydration, IV antibiotics and analgesics. He had a documented low-grade fever of 38.1 but had no other signs or symptoms suggestive of sepsis. We brought him to the operating room on 05/13 where we placed a left ureteral stent. We did not address either his ureteral or renal stones at that time. Now that his kidney has been drained, it is appropriate for him to be discharged with oral antibiotics. He will be contacted so that we can make arrangements for a follow-up ureteroscopy to address all of his stones at that time. Home Meds and New Rx's Prescriptions: New sulfamethoxazole-trimethoprim [Bactrim DS] 800-160 mg tablet 1 tab PO Q12H Qty: 10 0RF tramadol 50 mg tablet 50 mg PO Q6H PRN (Reason: pain) Qty: 20 0RF Rx Instructions: may take with NSAIDs and Tylenol No Action atorvastatin 20 mg tablet 20 mg PO QHS albuterol sulfate [ProAir HFA] 90 mcg/actuation HFA aerosol inhaler 2 puff inhalation Q6H PRN fluticasone propion-salmeterol [Advair Diskus] 100-50 mcg/dose blister with device 1 inh inhalation BID tamsulosin [Flomax] 0.4 mg capsule 0.4 mg PO DAILY Qty: 10 0RF Discharge Instructions Additional Instructions: Do not be surprised to see blood in urine as long as stent is in place My office will contact you to arrange a return to the operating room for ureteroscopy to address your remaining stones strain urine and bring any passed stone to our office so that the stone can be analyzed Activity:: Activity as Tolerated Equipment/Supplies:: No Equipment Needed Diet:: As Tolerated Discharge Orders Discharge Orders: Discharge Order (Routine); Ordered 05/13/22 Ordered By: Eloy Isaac Discharge Data Discharge Comment: may discharge if tolerating PO DS: Summary Time Spent with Patient providing and/or coordinating discharge services: Less than 30 minutes Status at Discharge Functional status at discharge: independent ambulation Overall status at discharge: patient is back to baseline Mental Status: mental status grossly normal Speech and Movement: speech and movement normal Mood: congruent mood Affect: normal affect Exam Narrative Exam Narrative: Time of discharge, he looks well. He does not appear septic or toxic. His vital signs are documented elsewhere His cardiac exam shows a regular rate and rhythm His abdomen is soft with no guarding or rebound tenderness He is awake and alert Psych Mental Status: mental status grossly normal Speech and Movement: speech and movement normal Mood: congruent mood Affect: normal affect DS: Data Vitals/I&O Vitals and I&O: Vital Signs Temperature 37.1 C 05/13/22 07:25 Temperature Source Tympanic 05/13/22 07:25 Pulse 80 05/13/22 07:25 Pulse Rhythm Regular 05/13/22 07:05 Pulse 92 H 05/13/22 00:20 Respiratory Rate 18 05/13/22 07:25 Respiratory Effort Non-Labored 05/13/22 07:05 Respiratory Depth Normal 05/13/22 07:05 Respiratory Pattern Normal 05/13/22 07:05 Blood Pressure 136/78 05/13/22 07:25 Blood Pressure Position Sitting 05/12/22 18:38 Pulse Oximetry 93 05/13/22 07:25 Oxygen Delivery Method Room Air 05/13/22 07:25 Oxygen Flow Rate 0 05/13/22 07:25 Pain Level 0 05/13/22 07:25 Intake & Output 05/12/22 05/12/22 05/13/22 11:59 23:59 11:59 Intake Total 50 / 50 1936.1936.5 Balance 50 / 50 1936.1936. Weight 81.647 kg 79.379 kg Intake: IV 50 / 50 1936.1936. Other: Urine Appearance Clear Comment pT voided in bathroom. Voiding Methods Toilet Data Completed and Pending Labs on day of discharge: Labs from last 24 hours 05/12/22 05/12/22 05/12/22 23:10 19:35 19:35 WBC 11.30 H RBC 5.29 Hgb 16.8 Hct 48.2 MCV 91 MCH 31.8 MCHC 34.9 RDW 12.9 Plt Count 227 MPV 9.2 Immature Gran % 0.4 Neutrophils % 76.5 Lymphocytes % 9.3 Monocytes % 13.7 Eosinophils % 0.0 Basophils % 0.1 Nucleated RBC % 0.0 Absolute Neutrophils 8.64 H Absolute Lymphocytes 1.05 L Absolute Monocytes 1.55 H Absolute Eosinophils 0.00 Absolute Basophils 0.01 RBC Morphology Normal Sodium 135 L Potassium 4.0 Chloride 98 Carbon Dioxide 25.2 Anion Gap 11.8 H BUN 24 H Creatinine 1.6 H Est GFR (CKD-EPI 2020) 46.64 Glucose 93 Calcium 9.0 Total Bilirubin 1.2 H AST 13 L ALT 29 Alkaline Phosphatase 93 Total Protein 8.2 Albumin 3.7 Urine Color Urine Clarity Urine pH Ur Specific [place] Urine Protein Urine Ketones Urine Blood Urine Nitrite Urine Bilirubin Urine Urobilinogen Ur Leukocyte Esterase Urine RBC Urine WBC Ur Epithelial Cells Urine Crystals Urine Bacteria Urine Mucus Ur Culture Indicated? Urine Glucose COVID-19 Source Nasal/Nares SARS-CoV-2 (PCR) Negative 05/12/22 19:25 WBC RBC Hgb Hct MCV MCH MCHC RDW Plt Count MPV Immature Gran % Neutrophils % Lymphocytes % Monocytes % Eosinophils % Basophils % Nucleated RBC % Absolute Neutrophils Absolute Lymphocytes Absolute Monocytes Absolute Eosinophils Absolute Basophils RBC Morphology Sodium Potassium Chloride Carbon Dioxide Anion Gap BUN Creatinine Est GFR (CKD-EPI 2020) Glucose Calcium Total Bilirubin AST ALT Alkaline Phosphatase Total Protein Albumin Urine Color Yellow Urine Clarity Clear Urine pH 6.0 Ur Specific [place] >= 1.030 H Urine Protein Negative Urine Ketones 80 H Urine Blood Trace-intact H Urine Nitrite Negative Urine Bilirubin Small H Urine Urobilinogen 0.2 Ur Leukocyte Esterase Negative Urine RBC 0-2 Urine WBC Negative Ur Epithelial Cells Negative Urine Crystals Negative Urine Bacteria Negative Urine Mucus Negative Ur Culture Indicated? No Urine Glucose Negative COVID-19 Source SARS-CoV-2 (PCR) PFSH All Active Problems (Updated 05/13/22 @ 07:27 by Eloy Isaac MD) Calculus of proximal left ureter (Acute) Kidney stone on left side (Acute) Dyspnea on exertion (Acute) Pulmonary infiltrate (Acute) Asthma (Chronic) Pulmonary embolism and infarction (Acute) Achilles rupture, left (Acute) Medical History (Updated 05/13/22 @ 07:27 by Eloy Isaac MD) Adhesive capsulitis of left shoulder (07/02/18) Asthma Elevated PSA Hyperlipidemia Partial tear of left rotator cuff (03/01/18) Polyarthralgia Ruptured Achilles tendon due to trauma Shoulder pain, bilateral Surgical History (Updated 05/13/22 @ 10:01 by Eloy Isaac MD) H/O arthroscopy S/P cystoscopy with ureteral stent placement Social History Smoking/Tobacco Use Status: Never Smoking risk assessment performed?: Yes Alcohol Intake: current Alcohol Intake frequency: holidays/special occasions only Alcohol type: beer Drug use: Never Do you feel safe at home: Yes Do you feel safe in your relationship?: Yes
--- NOTE | 2022-05-13 10:05 | W.ANESPOSTOP ---
Postoperative Evaluation Date, Time and Location Date Performed: 05/13/22 Time Performed: 10:05 Patient Location: PACU Vital Signs Most Recent Imported Vital Signs: Most Recent Vital Signs Temp Pulse Resp BP Pulse Ox 37.2 C 74 17 119/68 94 05/13/22 09:45 05/13/22 09:50 05/13/22 09:50 05/13/22 09:50 05/13/22 09:50 Pain Score Most Recent Pain Score: Most Recent Pain Score Pain Level 0 05/13/22 09:50 Assessment Mental Status: Awake (Alert & Oriented to Patient Baseline) Airway and Respiratory Function: Patent airway with normal (patient baseline) respiratory exam Cardiovascular Function: Hemodynamically Stable Hydration Status: Adequately Hydrated Nausea & Vomiting: No Nausea or Vomiting Pain: Pt. Denies Any Pain Peripheral Nerve Block: Patient did not receive a nerve block
[2022-05-13] MEDS: Phenazopyridine 200 MG TAB PO (10:49)
--- NOTE | 2022-05-13 15:41 | PDOC.CMDIS ---
- If Service Date Differs Date of service: 05/13/22 Time of Service: 15:41 LACE Index Scoring Tool - Questions: Length of Stay (in days): 1 Acuity (Admit via E.D.?): Yes Comorbidities: Chronic Pulmonary Disease E.D. Visits: 3 - Answers: Total Score: 9 Risk of Readmission: Low Risk Care Management Discharge Reason for Hospitalization: Kidney stone on left side Discharge Plan: Horacio is discharged home via private vehicle with family s/p surgical intervention with Urology. New RX's are transmitted to [facility]. Horacio will follow up with Urology on 05/23/22, as scheduled. In addition, Dr. Isaac's office will contact pt to arrange a return to the OR for ureteroscopy to address remaining stones. No [facility] services are ordered on discharge. Patient/Family Education Needs: Review discharge instructions, limitations, medications and plan to follow up with community providers. ask me three.
== END 2022-05-13 13:35 | disposition home or self-care (01) ==
LOC: ER 05-13 00:58 → MS 05-13 01:22
PROVIDERS: Urology; Admitting Provider General Practice; Emergency Provider Nurse Practitioner Family; PCP Nurse Practitioner Family; Visit Provider General Practice
PROC: 0T9780Z Drainage of Left Ureter with Drainage Device, Via Natural or Artificial Opening Endoscopic (ICD-10-PCS; CPT 52332; principal; 2022-05-13 09:00)
DX: N13.2 Hydronephrosis with renal and ureteral calculous obstruction (principal); J45.909 Unspecified asthma, uncomplicated; E78.5 Hyperlipidemia, unspecified; Z20.822 Contact with and (suspected) exposure to COVID-19; R97.20 Elevated prostate specific antigen [PSA]; Z86.711 Personal history of pulmonary embolism; Z79.899 Other long term (current) drug therapy
CPT/HCPCS: 52332; 52005; 80053; 87635; 94640; 96361; 96365; 96374; 96375; 99220; 99285; 74420; 81003; 81015; 85025; 99219; 99284; G0378; J0131; J0690; J0696; J1100; J1170; J1885; J2405; J2704

== ENCOUNTER 2022-06-02 08:50 | Day surgery (SDC) | payer MEDICARE, SELFPAY ==
[2022-06-02] VITALS (9 sets, daily range): BP systolic 138–190; BP diastolic 84–122; PULSE 63–72; RESP 13–19; TEMP 36–36.5; O2SAT 94–97; BMI 26.1
--- NOTE | 2022-06-02 06:27 | ANES.PREOP_ITS ---
General Info Date of Service Date Performed: 06/02/22 Height: 5 ft 9 in Weight: 80.286 kg Body Mass Index (BMI): 26.1 Surgical Procedure: Operation Date: 06/02/22 11:40 Proposed Procedure Side Surgeon p Cystoscopy/Laser/Retrograde/Ureteroscopy/Stent Removal/Possible Replacement Stent Left Eloy Isaac MD Meds Allergies and Home Medications Allergies Allergy/AdvReac Type Severity Reaction Status Date / Time No Known Drug Allergies Allergy Unknown Unverified 05/12/22 21:37 dust and dust mites Allergy Uncoded 05/12/22 21:37 Home Medication Medication Instructions Recorded albuterol sulfate 90 mcg/actuation 2 puff inhalation Q6H PRN 04/29/21 aerosol inhaler (ProAir HFA) atorvastatin 20 mg tablet 20 mg PO QHS 04/29/21 fluticasone 100 mcg-salmeterol 50 1 inh inhalation BID 01/14/22 mcg/dose blistr powdr for inhalation (Advair Diskus) tamsulosin 0.4 mg capsule (Flomax) 0.4 mg PO DAILY #10 caps 05/11/22 sulfamethoxazole 800 1 tab PO Q12H antibiotic #10 tabs 05/13/22 mg-trimethoprim 160 mg tablet (Bactrim DS) tramadol 50 mg tablet 50 mg PO Q6H PRN pain #20 tabs 05/13/22 Current Visit Medications: Current Medications Generic Name Dose Route Start Last Admin Trade Name Freq PRN Reason Stop Dose Admin Ringer's Solution 1,000 mls @ 80 mls/hr 06/02/22 06:00 IV 06/29/22 23:59 INFUSION GIANLUCA Cefazolin Sodium/Dextrose 2 gm in 50 mls @ 100 mls/hr 06/02/22 06:00 Ancef Duplex IVPB 06/02/22 16:00 PREOP GIANLUCA IV Miscellaneous Supplies 1 each 06/02/22 06:00 Iv Access IV 06/29/22 23:59 DIRECTED GIANLUCA Sodium Chloride 0 ml 06/02/22 06:00 Normal Saline Flush 10 Ml Syr IV 06/29/22 23:59 PRN PRN Sodium Chloride 0 ml 06/02/22 06:00 Normal Saline 10 Ml Vial IJ 06/29/22 23:59 DIRECTED PRN Sterile Water 0 ml 06/02/22 06:00 Water,Injection,Sterile 10 Ml Vial IJ 06/29/22 23:59 DIRECTED PRN PFSH Active Problems Active Problems: Problem Status Onset Code Calculus of proximal left ureter N20.1 Kidney stone on left side N20.0 Dyspnea on exertion R06.09 Pulmonary infiltrate R91.8 Asthma J45.909 Pulmonary embolism and infarction I26.99 Achilles rupture, left S86.012A Medical History Medical History 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) Asthma Elevated PSA Hyperlipidemia Partial tear of left rotator cuff (03/01/18) Polyarthralgia Ruptured Achilles tendon due to trauma Shoulder pain, bilateral Surgical History Surgical History H/O arthroscopy S/P cystoscopy with ureteral stent placement Tobacco Smoking/Tobacco Use Status: Never Alcohol Alcohol Intake: current Alcohol intake frequency: holidays/special occasions only Alcohol type: beer Substance Use Substance use: Never Vital Signs and Lab Results Vital Signs Most Recent Vital Signs in EMR: Temp Pulse Resp BP Pulse Ox 36.4 C L 71 18 154/84 H 97 06/02/22 09:19 06/02/22 09:19 06/02/22 09:19 06/02/22 09:19 06/02/22 09:19 Lab Results Blood Type / Crossmatch: No Data to Display Complete Blood Count: White Blood Count 11.30 10^3/uL (4.4-10.8) H 05/12/22 19:35 Red Blood Count 5.29 10^6/uL (4.36-5.78) 05/12/22 19:35 Hemoglobin 16.8 g/dL (13.5-17.5) 05/12/22 19:35 Hematocrit 48.2 % (40.0-50.0) 05/12/22 19:35 Platelet Count 227 10^3/uL (130-400) 05/12/22 19:35 Complete Metabolic Panel: Sodium Level 135 mmol/L (136-145) L 05/12/22 19:35 Potassium Level 4.0 mmol/L (3.5-5.1) 05/12/22 19:35 Chloride Level 98 mmol/L (98-107) 05/12/22 19:35 Carbon Dioxide Level 25.2 mmol/L (21.0-32.0) 05/12/22 19:35 Blood Urea Nitrogen 24 mg/dL (7-18) H 05/12/22 19:35 Creatinine 1.6 mg/dL (0.70-1.30) H 05/12/22 19:35 Calcium Level 9.0 mg/dL (8.5-10.1) 05/12/22 19:35 Albumin 3.7 g/dL (3.4-5.0) 05/12/22 19:35 Glucose Level 93 mg/dL (74-106) 05/12/22 19:35 Liver Function Panel: Alanine Aminotransferase (ALT/SGPT) 29 U/L (16-63) 05/12/22 19: 35 Aspartate Amino Transf (AST/SGOT) 13 U/L (15-37) L 05/12/22 19: 35 Coagulation Panel: No Data to Display Cardiac Panel: No Data to Display Arterial Blood Gas: No Data to Display Venous Blood Gas: No Data to Display Pancreas Panel: No Data to Display Thyroid Panel: No Data to Display Infectious Disease: Coronavirus (COVID-19)(PCR) Negative (Negative) 05/12/22 23:10 Coronavirus 2019 Source Nasal/Nares 05/12/22 23:10 Blood Cultures: No Data to Display Toxicology Panel: No Data to Display Imaging and Studies Imaging and Studies Study information below may be from another EMR and interpreted by another provider. Please see original notes in EMR for more complete details. EKG Summary: 09/21: sinus rhythm. [id number] Pulmonary Function Summary: 05/22: moderate airflow obstruction with reduced diffusion, consistent with COPD with ephysema. Anesthesia Assessment and Plan Anesthesia History Personal History: No History of Anesthesia Complications Family History: No Family History of Anesthesia Complications Exercise Tolerance Exercise Tolerance: Metabolic Equivalents>4 Pertinent Negatives Pertinent Negatives: No Symptoms of GERD, No Major Cardiovascular Symptoms or Complaints, No Major Pulmonary Symptoms or Complaints (Empheysema (new diagnosis), never a smoker, asthma ) and No History of CVA/TIA Cardiac & Pulmonary Exam Cardiac Exam: Normal S1/S2 Heart Sounds Pulmonary Exam: Clear Bilateral Breath Sounds Implantable Cardiac Device Does patient have a Pacemaker or an ICD?: No Airway Exam Known Difficult Airway: No Mallampati Class: 3 Mouth Opening: Narrow (< 3cm) Thyromental Distance: Greater than 3 cm Neck Range of Motion: Full ROM Neck Circumference: Normal Teeth Condition: Normal Dentition and Loose or Chipped (miltiple chips, denies loose) ASA Classification ASA Score: ASA 2 Emergency Case?: No NPO Status NPO Status: NPO Clears >2 hours, Solids >8 hours Anesthesia Plan Resuscitation Status: Full Code Anesthesia Technique: General Anesthesia Airway Planned: LMA Monitors Used: Standard Monitors Preoperative Comments:: 66 yo male for kidney stone. Sig PMHX: PE (09/21, 6 months of anticoag), asthma (sees duchene, on albut, advair), never smoker, occ EtOH. previous Anes: LMA 4.
[2022-06-02] MEDS: Lactated Ringers 1,000 ML 80 ML IV (09:33)
--- NOTE | 2022-06-02 12:32 | W.PM.HP.N ---
Date of service: 06/02/22 Time of Service: 12:49 Assessment and Plan Assessment and plan (1) Calculus of proximal left ureter: Status: Acute Assessment and plan: For cystoscopy with stent removal, ureteroscopy with holmium laser lithotripsy of his stone History of Present Illness History of Present Illness Chief Complaint: Left ureteral stone Narrative: This is a 66 year old man who presented with left abdominal and flank pain. He was found to have an 8 mm proximal left ureteral stone. Initially, we placed a ureteral stent. He presents now for ureteroscopy with treatment of his stone. He had some flank pain and bleeding initially after the stent was placed, but no additional episodes of gross hematuria. He will now have occasional left flank discomfort. He has not passed his stone as far as he is aware. Review of Systems Narrative: No fevers or chills No vision change or dysphasia No diabetes or thyroid dysfunction Hx asthma.? No hemoptysis No chest pain or palpitations No nausea, vomiting, hepatitis, ulcers, jaundice No seizures, strokes or peripheral neuropathy Hx PE with no known DVT.? 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) Asthma Elevated PSA Hyperlipidemia Partial tear of left rotator cuff (03/01/18) Polyarthralgia Ruptured Achilles tendon due to trauma Shoulder pain, bilateral Surgical History H/O arthroscopy S/P cystoscopy with ureteral stent placement Social History Smoking/Tobacco Use Status: Never Smoking risk assessment performed?: Yes Alcohol Intake: current Alcohol Intake frequency: holidays/special occasions only Alcohol type: beer Drug use: Never Do you feel safe at home: Yes Do you feel safe in your relationship?: Yes Meds Allergies and Home Medications Allergies Allergy/AdvReac Type Severity Reaction Status Date / Time No Known Drug Allergies Allergy Unknown Unverified 05/12/22 21:37 dust and dust mites Allergy Uncoded 05/12/22 21:37 Home Medications Medication Instructions Recorded Confirmed Type albuterol sulfate 90 mcg/actuation 2 puff inhalation Q6H PRN 04/29/21 06/02/22 History aerosol inhaler (ProAir HFA) atorvastatin 20 mg tablet 20 mg PO QHS 04/29/21 06/02/22 History fluticasone 100 mcg-salmeterol 50 1 inh inhalation BID 01/14/22 06/02/22 History mcg/dose blistr powdr for inhalation (Advair Diskus) tamsulosin 0.4 mg capsule (Flomax) 0.4 mg PO DAILY #10 caps 05/11/22 06/02/22 Rx sulfamethoxazole 800 1 tab PO Q12H antibiotic #10 tabs 05/13/22 06/02/22 Rx mg-trimethoprim 160 mg tablet (Bactrim DS) tramadol 50 mg tablet 50 mg PO Q6H PRN pain #20 tabs 05/13/22 06/02/22 Rx Exam Const General: cooperative Neck Neck: supple Resp Effort & Inspection: normal respiratory effort Auscultation: clear to auscultation bilaterally Cardio Rate: regular rate Rhythm: regular rhythm GI Palpation: soft and no masses Neuro General: patient alert, patient awake and patient oriented x3 Results Last Vital Signs Temp 36.4 C L 06/02/22 09:19 Pulse 71 06/02/22 09:19 Resp 18 06/02/22 09:19 BP 154/84 H 06/02/22 09:19 Pulse Ox 97 06/02/22 09:19
--- NOTE | 2022-06-02 13:00 | DI.RAD_ITS ---
Exam(s) XR RETROGRADE IN OR EXAM: XR RETROGRADE IN OR CLINICAL HISTORY: Calculus of proximal left ureter. TECHNIQUE: 2D and realtime digital imaging was performed for the referring physician. COMPARISON: No exams were available for comparison FINDINGS: Please see procedure note for details Fluoro time 0.59 seconds. RADIATION DOSE DELIVERED: radha Steele=12.34 mGy
[2022-06-02] MEDS: ceFAZolin 2 GM/50 ML BAG IVPB (13:35)
[2022-06-02] MEDS: Lidocaine 2% Jelly 6 ML SYR (13:52)
--- NOTE | 2022-06-02 14:55 | W.PM.OP ---
Date of service: 06/02/22 Time of Service: 14:55 Operative Note Operative Note DATE OF PROCEDURE: 06/02/22 PRE-OP DIAGNOSIS: Left ureteral stone Left renal stones PROCEDURE: Cystoscopy, remove left ureteral stent, left retrograde pyelogram, left ureteroscopy with holmium laser lithotripsy, stone fragment extraction, insert left ureteral stent SURGEON: Eloy Isaac ANESTHESIA TYPE: General LMA/ETT Refer to Anesthesia Record ESTIMATED BLOOD LOSS: 10 PATHOLOGY: other (stones for chemical analysis) COMPLICATIONS: None Patient was transported to: PACU Patient's condition: stable Implants: 4.8 yemeni by 22 to 30 cm left ureteral stent Indications: A 66-year-old gentleman who presented to the emergency department with left flank pain. He was found to have a proximal left ureteral stone. He was initially treated with placement of a ureteral stent. He presents now for ureteroscopy with treatment of his stone. In addition to the ureteral stone, he has a nonobstructing stones in the lower pole of the left kidney. Findings: stones in left lower pole calyces Procedure Description: Patient was brought to the operating room on 06/02/2022. Given a dose of preoperative IV antibiotics. After successful induction of general anesthesia, he was placed in the dorsal lithotomy position. His genitalia was prepped and draped. 2% Xylocaine jelly was instilled into the urethra to act as a local anesthetic. A 22 [place] rigid cystoscope was passed through the urethra into the bladder. The bladder was inspected using a 30 degree lens. The pendulous, bulbar and membranous urethra all appeared normal with no strictures. The prostatic urethra showed some lateral lobe enlargement. The bladder neck was entered and the bladder mucosa was inspected. The right ureteral orifice appeared normal. There were edematous changes around the left ureteral orifice and a stent could be seen protruding from the orifice. The stent was grasped with alligator forceps and brought out to the urethral meatus. A Glidewire was then advanced through the stent and the stent was removed leaving the wire in place. A dual-lumen catheter was then advanced over the wire. Omnipaque was injected through the second lumen of the dual-lumen catheter in order to obtain a retrograde pyelogram. No filling defects were found within the ureter, but there did appear to be 3 stones in the lower pole calyces. A second guidewire was then positioned through the dual-lumen catheter and the catheter was removed. We chose one of the wires as a working wire and the second 1 as a safety wire. We passed the ureteral access sheath over the working wire and advanced the sheath until the tip was in the proximal ureter. I then passed the flexible ureteroscope through the access sheath and advanced the scope up to the kidney. We were able to visualize each of the calyces and we did see a 3 distinct stones in the lower pole calyces. I was able to grasp to the stones and bring them back to the renal pelvis. We released them from the basket and treated the stones using a 272 ?m holmium laser fiber. We used a combination of dusting settings (power 200 with a rate of 8) and fragmenting settings (power 800 with rate of 8). We grasped multiple fragments with a 0 tip stone basket and extracted them. The stone fragments were sent to pathology for chemical analysis. Visibility became difficult and I was unable to visualize the third stone. We then elected to replace his ureteral stents and we will make a plan to return to the operating room to deal with the additional stone. We chose a 4.8 [place] variable length stent and advanced it over the safety wire. The proximal end of the stent was curled in the renal pelvis and the distal end of the stent was curled in the bladder. The positioning of the stent was confirmed both fluoroscopically and cystoscopically. The patient tolerated this procedure well with no complications.
--- NOTE | 2022-06-02 14:58 | W.PM.DSUDISC ---
Discharge Plan Disposition Patient Disposition: HOME Condition: Good Discharge Details Reason For Visit: ureteroscopy Attending Provider: Eloy Isaac Primary Care Provider: Nishi Mckinley Home Meds and New Rx's Prescriptions: No Action atorvastatin 20 mg tablet 20 mg PO QHS albuterol sulfate [ProAir HFA] 90 mcg/actuation HFA aerosol inhaler 2 puff inhalation Q6H PRN fluticasone propion-salmeterol [Advair Diskus] 100-50 mcg/dose blister with device 1 inh inhalation BID tamsulosin [Flomax] 0.4 mg capsule 0.4 mg PO DAILY Qty: 10 0RF sulfamethoxazole-trimethoprim [Bactrim DS] 800-160 mg tablet 1 tab PO Q12H Qty: 10 0RF tramadol 50 mg tablet 50 mg PO Q6H PRN (Reason: pain) Qty: 20 0RF Rx Instructions: may take with NSAIDs and Tylenol Discharge Instructions Additional Instructions: no need to strain urine my office will contact pt to arrange cystoscopy, stent removal and repeat ureteroscopy to make sure all stones have been removed Activity:: Activity as Tolerated Shower/Bathe:: 24 hours Diet:: As Tolerated Discharge Orders Discharge Orders: Discharge Order (Routine); Ordered 06/02/22 Ordered By: Eloy Isaac DS: Diagnosis Discharge Diagnosis (1) Calculus of proximal left ureter: Status: Acute
--- NOTE | 2022-06-02 15:28 | W.ANESPOSTOP ---
Postoperative Evaluation Date, Time and Location Date Performed: 06/02/22 Time Performed: 15:28 Patient Location: PACU Vital Signs Most Recent Imported Vital Signs: Most Recent Vital Signs Temp Pulse Resp BP Pulse Ox 36.4 C L 72 13 140/122 H 94 06/02/22 15:15 06/02/22 15:15 06/02/22 15:15 06/02/22 15:15 06/02/22 15:15 Pain Score Most Recent Pain Score: Most Recent Pain Score Pain Level 0 06/02/22 15:15 Assessment Mental Status: Arousable with meaningful communication Airway and Respiratory Function: Patent airway with normal (patient baseline) respiratory exam Cardiovascular Function: Hemodynamically Stable Hydration Status: Adequately Hydrated Nausea & Vomiting: No Nausea or Vomiting Pain: Pain is tolerable per patient Peripheral Nerve Block: Patient did not receive a nerve block
[2022-06-02] MEDS: Phenazopyridine 200 MG TAB PO (15:55)
[2022-06-05 15:54] LABS: Source: Left Ureter
== END 2022-06-02 16:31 | disposition home or self-care (01) ==
PROVIDERS: PCP Nurse Practitioner Family; Visit Provider Urology
PROC: (CPT 52356; principal; 2022-06-02 11:30)
DX: N20.1 Calculus of ureter (principal); J45.909 Unspecified asthma, uncomplicated
CPT/HCPCS: 52356; 74420; 82365; J0690; J1100; J1885; J2405; J2704

== ENCOUNTER 2022-07-03 06:23 | Day surgery (SDC) | payer MEDICARE, SELFPAY ==
[2022-07-03] VITALS (9 sets, daily range): BP systolic 94–164; BP diastolic 61–94; PULSE 56–86; RESP 12–18; TEMP 36–36.7; O2SAT 91–96; BMI 26.2
--- NOTE | 2022-07-03 06:48 | HPE_ITS ---
Date of service: 07/03/22 Time of Service: 06:49 Assessment and Plan Assessment and plan (1) Kidney stone on left side: Status: Acute Assessment and plan: We will remove his ureteral stent and do ureteroscopy to address any residual stones/fragments. History of Present Illness History of Present Illness Chief Complaint: Left kidney stone Narrative: This is a 66-year-old gentleman who is usually followed in our office for an elevated PSA.? He has not been diagnosed with prostate cancer. He has a history of a pulmonary embolism, so he had a CT of the chest abdomen and pelvis back in August.? At that time, he had a single nonobstructing stone in the lower pole of the left kidney. He presented to our emergency department over the weekend with left renal colic.? A noncontrast CT scan showed a stone in the left upper ureter along with 2 additional nonobstructing stones in the lower pole of the left kidney.? He was not showing any signs of sepsisinitially, so he was discharged with conservative management.? He returned to the ED last evening with persistent pain and a low- grade fever.? We then placed a ureteral stent due to concerns about the possibility of sepsis developing. He subsequently underwent ureteroscopy and holmium laser lithotripsy. We were u nable to be certain all stone fragments were addressed, so a stent was replaced and a return to the OR was planned. Since then, he has had blood in the urine especially with activity. He has no clot retention. Review of Systems Narrative: No fevers or chills No vision change or dysphasia No diabetes or thyroid Short of breath with exertion. No hemoptysis No chest pain or palpitations No nausea, vomiting, hepatitis, ulcers, jaundice No seizures, strokes or peripheral neuropathy Hx PE. 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) Asthma Calculus of proximal left ureter Elevated PSA History of COVID-19 05/31/22 Hyperlipidemia Partial tear of left rotator cuff (03/01/18) Polyarthralgia Ruptured Achilles tendon due to trauma Shoulder pain, bilateral Surgical History H/O arthroscopy H/O ureteroscopy S/P cystoscopy with ureteral stent placement Social History Smoking/Tobacco Use Status: Never Smoking risk assessment performed?: Yes Alcohol Intake: current Alcohol Intake frequency: holidays/special occasions only Alcohol type: beer Drug use: Never Substance use type: does not use Do you feel safe at home: Yes Do you feel safe in your relationship?: Yes Meds Allergies and Home Medications Allergies Allergy/AdvReac Type Severity Reaction Status Date / Time No Known Drug Allergies Allergy Unknown Unverified 07/03/22 06:31 dust and dust mites Allergy Uncoded 07/03/22 06:31 Home Medications Medication Instructions Recorded Confirmed Type albuterol sulfate 90 mcg/actuation 2 puff inhalation Q6H PRN 04/29/21 07/03/22 History aerosol inhaler (ProAir HFA) atorvastatin 20 mg tablet 20 mg PO QHS 04/29/21 07/03/22 History fluticasone 100 mcg-salmeterol 50 1 inh inhalation BID 01/14/22 07/03/22 History mcg/dose blistr powdr for inhalation (Advair Diskus) tramadol 50 mg tablet 50 mg PO Q6H PRN pain #20 tabs 05/13/22 07/03/22 Rx Exam Const General: cooperative and comfortable Neck Neck: supple Resp Effort & Inspection: normal respiratory effort Auscultation: clear to auscultation bilaterally Cardio Rate: regular rate Rhythm: regular rhythm GI Palpation: soft and no masses Neuro General: patient alert, patient awake and patient oriented x3 Results Last Vital Signs Temp 36.7 C 07/03/22 06:25 Pulse 86 07/03/22 06:25 Resp 18 07/03/22 06:25 BP 147/94 H 07/03/22 06:25 Pulse Ox 96 07/03/22 06:25
[2022-07-03] MEDS: Lactated Ringers 1,000 ML 80 ML IV (06:52)
--- NOTE | 2022-07-03 06:59 | ANES.PREOP_ITS ---
General Info Date of Service Date Performed: 07/03/22 Height: 5 ft 9 in Weight: 80.4 kg Body Mass Index (BMI): 26.2 Surgical Procedure: Operation Date: 07/03/22 07:40 Proposed Procedure Side Surgeon p Cystoscopy/Possible Laser/Retrograde/Remove Ureteral Stent Left Eloy Isaac MD Meds Allergies and Home Medications Allergies Allergy/AdvReac Type Severity Reaction Status Date / Time No Known Drug Allergies Allergy Unknown Unverified 07/03/22 06:31 dust and dust mites Allergy Uncoded 07/03/22 06:31 Home Medication Medication Instructions Recorded albuterol sulfate 90 mcg/actuation 2 puff inhalation Q6H PRN 04/29/21 aerosol inhaler (ProAir HFA) atorvastatin 20 mg tablet 20 mg PO QHS 04/29/21 fluticasone 100 mcg-salmeterol 50 1 inh inhalation BID 01/14/22 mcg/dose blistr powdr for inhalation (Advair Diskus) tramadol 50 mg tablet 50 mg PO Q6H PRN pain #20 tabs 05/13/22 Current Visit Medications: Current Medications Generic Name Dose Route Start Last Admin Trade Name Freq PRN Reason Stop Dose Admin Ringer's Solution 1,000 mls @ 80 mls/hr 07/03/22 06:00 07/03/22 06:52 IV 08/01/22 23:59 80 mls/hr INFUSION GIANLUCA Administration Cefazolin Sodium/Dextrose 2 gm in 50 mls @ 100 mls/hr 07/03/22 06:00 Ancef Duplex IVPB 07/03/22 16:00 PREOP GIANLUCA IV Miscellaneous Supplies 1 each 07/03/22 06:00 Iv Access IV 08/01/22 23:59 DIRECTED GIANLUCA Sodium Chloride 0 ml 07/03/22 06:00 Normal Saline Flush 10 Ml Syr IV 08/01/22 23:59 PRN PRN Sodium Chloride 0 ml 07/03/22 06:00 Normal Saline 10 Ml Vial IJ 08/01/22 23:59 DIRECTED PRN Sterile Water 0 ml 07/03/22 06:00 Water,Injection,Sterile 10 Ml Vial IJ 08/01/22 23:59 DIRECTED PRN PFSH Active Problems Active Problems: Problem Status Onset Code Achilles rupture, left S86.012A Pulmonary embolism and infarction I26.99 Asthma J45.909 Pulmonary infiltrate R91.8 Dyspnea on exertion R06.09 Kidney stone on left side N20.0 Medical History Medical History 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) Asthma Calculus of proximal left ureter Elevated PSA History of COVID-19 05/31/22 Hyperlipidemia Partial tear of left rotator cuff (03/01/18) Polyarthralgia Ruptured Achilles tendon due to trauma Shoulder pain, bilateral Surgical History Surgical History H/O arthroscopy H/O ureteroscopy S/P cystoscopy with ureteral stent placement Tobacco Smoking/Tobacco Use Status: Never Alcohol Alcohol Intake: current Alcohol intake frequency: holidays/special occasions only Alcohol type: beer Substance Use Substance use: Never Substance use type: does not use Vital Signs and Lab Results Vital Signs Most Recent Vital Signs in EMR: Most Recent Vital Signs Temp Pulse Resp BP Pulse Ox 36.7 C 86 18 147/94 H 96 07/03/22 06:25 07/03/22 06:25 07/03/22 06:25 07/03/22 06:25 07/03/22 06:25 Lab Results Blood Type / Crossmatch: No Data to Display Complete Blood Count: No Data to Display Complete Metabolic Panel: No Data to Display Liver Function Panel: No Data to Display Coagulation Panel: No Data to Display Cardiac Panel: No Data to Display Arterial Blood Gas: No Data to Display Venous Blood Gas: No Data to Display Pancreas Panel: No Data to Display Thyroid Panel: No Data to Display Infectious Disease: No Data to Display Blood Cultures: No Data to Display Toxicology Panel: No Data to Display Imaging and Studies Imaging and Studies Study information below may be from another EMR and interpreted by another provider. Please see original notes in EMR for more complete details. EKG Summary: 09/21: sinus rhythm. [id number] Pulmonary Function Summary: 05/22: moderate airflow obstruction with reduced dif fusion, consistent with COPD with ephysema. Anesthesia Assessment and Plan Anesthesia History Personal History: No History of Anesthesia Complications Family History: No Family History of Anesthesia Complications Exercise Tolerance Exercise Tolerance: Metabolic Equivalents>4 Pertinent Negatives Pertinent Negatives: No Symptoms of GERD, No Major Cardiovascular Symptoms or Complaints and No Major Pulmonary Symptoms or Complaints Cardiac & Pulmonary Exam Cardiac Exam: Normal S1/S2 Heart Sounds Pulmonary Exam: Clear Bilateral Breath Sounds Implantable Cardiac Device Does patient have a Pacemaker or an ICD?: No Airway Exam Known Difficult Airway: No Mallampati Class: 3 Mouth Opening: Narrow (< 3cm) Thyromental Distance: Greater than 3 cm Neck Range of Motion: Full ROM Neck Circumference: Normal Teeth Condition: Normal Dentition and Loose or Chipped (miltiple chips, denies loose) ASA Classification ASA Score: ASA 2 Emergency Case?: No NPO Status NPO Status: NPO Clears >2 hours, Solids >8 hours Anesthesia Plan Resuscitation Status: Full Code Anesthesia Technique: General Anesthesia Airway Planned: LMA Monitors Used: Standard Monitors
--- NOTE | 2022-07-03 07:15 | DI.RAD_ITS ---
Exam(s) XR RETROGRADE IN OR EXAM: XR RETROGRADE IN OR CLINICAL HISTORY: Kidney stone on left side TECHNIQUE: 2D and realtime digital imaging was performed. COMPARISON: No exams were available for comparison FINDINGS: C-arm fluoroscopy was utilized by Dr. Isaac during retrograde ureterography Please see the procedure note. IMPRESSION: RADIATION DOSE DELIVERED: radha Steele=3.54 mGy
[2022-07-03] MEDS: ceFAZolin 2 GM/50 ML BAG IVPB (07:33)
[2022-07-03] MEDS: Lidocaine 2% Jelly 6 ML SYR (07:51)
--- NOTE | 2022-07-03 08:55 | W.PM.DSUDISC ---
Date of service: 07/03/22 Time of Service: 08:55 Discharge Plan Disposition Patient Disposition: HOME Condition: Good Discharge Details Attending Provider: Eloy Isaac Primary Care Provider: Nishi Mckinley Home Meds and New Rx's Prescriptions: No Action atorvastatin 20 mg tablet 20 mg PO QHS albuterol sulfate [ProAir HFA] 90 mcg/actuation HFA aerosol inhaler 2 puff inhalation Q6H PRN fluticasone propion-salmeterol [Advair Diskus] 100-50 mcg/dose blister with device 1 inh inhalation BID tramadol 50 mg tablet 50 mg PO Q6H PRN (Reason: pain) Qty: 20 0RF Rx Instructions: may take with NSAIDs and Tylenol Discharge Instructions Additional Instructions: no need to strain urine followup early next week for stent removal - tell my office there is a string on the stent followup appt in 6 weeks with renal US Activity:: Activity as Tolerated Shower/Bathe:: 24 hours Diet:: As Tolerated Discharge Orders Discharge Orders: Discharge Order (Routine); Ordered 07/03/22 Ordered By: Eloy Isaac DS: Diagnosis Discharge Diagnosis (1) Kidney stone on left side: Status: Acute
--- NOTE | 2022-07-03 09:02 | W.PM.OP ---
Date of service: 07/03/22 Time of Service: 09:02 Operative Note Operative Note DATE OF PROCEDURE: 07/03/22 PRE-OP DIAGNOSIS: Left kidney stone PROCEDURE: cystoscopy, remove left ureteral stent, left retrograde pyelogram, left flexible ureteroscopy, holmium laser lithotripsy, extraction of stone fragments, insert left ureteral stent SURGEON: Eloy Isaac ANESTHESIA TYPE: General LMA/ETT Refer to Anesthesia Record ESTIMATED BLOOD LOSS: 5 PATHOLOGY: other (stones for chemical analysis) COMPLICATIONS: None Patient was transported to: PACU Patient's condition: stable Implants: 4.8 Citizen Of [place] by 22 to 30 cm left ureteral stent (with string attached) Indications: This is a 66-year-old gentleman who was initially followed for nonobstructing left renal stones. He then developed renal colic when one of the stones migrated to the proximal left ureter. There were concerns that he may be developing sepsis when he described a fever. We placed a ureteral stent. He subsequently had ureteroscopy with holmium laser lithotripsy. We were able to address 2 of his known 3 kidney stones on the left. We were unable to access the third stone, so a stent was replaced. He presents now for repeat ureteroscopy and treatment of his remaining kidney stone Findings: Stone in the left lower pole Procedure Description: Patient was given preoperative IV antibiotics and brought to the operating room on 07/03/2022. After successful induction of general anesthesia, he was placed in the dorsal lithotomy position. His genitalia was prepped and draped. 2% Xylocaine jelly was instilled into the urethra to act as a local anesthetic. A 22 Citizen [place] rigid cystoscope was passed through the urethra into the bladder. The bladder was inspected with a 30 degree lens. The pendulous, bulbar and membranous urethra all appeared normal. The prostatic urethra showed lateral lobe enlargement but no significant median lobe. The right ureteral orifice again appeared edematous with a stent protruding from the lumen. The stent was grasped with alligator forceps and brought to the level of the urethral meatus. A Glidewire was then advanced through the lumen of the stent and the stent was removed leaving the wire in place. A dual-lumen catheter was advanced over the wire. Retrograde pyelogram was then obtained by injecting Omnipaque through the second lumen of the dual-lumen catheter. This allowed us to outline the calyces and find evidence of his remaining kidney stone in the lower pole calyx. A second wire was positioned through the dual-lumen catheter and the catheter was removed. We passed the ureteral access sheath over one of the wires. The second wire was chosen as a safety wire. We then passed our flexible ureteroscope up through the access sheath and into the collecting system. We inspected the calyces and visualized the stone in the lower pole calyx. The stone was grasped in a 0 tip stone basket and brought back to the renal pelvis. The stone was then released and was treated with a 272 ?m holmium laser fiber. We fractured the stone with a power setting of 800 and a rate of 8. Once the stone fragmented into smaller pieces, we were able to grasp the pieces in a 0 tip stone basket and remove them. All extracted fragments were sent to pathology for chemical analysis. Once all of the large stone fragments had been removed, the access sheath was removed. A 4.8 Citizen [place] variable length stent was then advanced over the safety wire. The proximal end of the stent was curled in the renal pelvis and the distal and was curled within the bladder. The safety string was left in place and brought through the patient's urethra. The end of the safety string was then taped to the dorsum of the penis using a Steri-Strip. The patient tolerated this procedure well with no complications.
[2022-07-03] MEDS: Phenazopyridine 200 MG TAB PO (10:25)
--- NOTE | 2022-07-03 12:08 | W.ANESPOSTOP ---
Postoperative Evaluation Date, Time and Location Date Performed: 07/03/22 Time Performed: 12:08 Patient Location: Day Surgery Unit Vital Signs Most Recent Imported Vital Signs: Most Recent Vital Signs Temp Pulse Resp BP Pulse Ox 36.1 C L 62 18 140/87 93 07/03/22 10:45 07/03/22 10:45 07/03/22 10:45 07/03/22 10:45 07/03/22 10:45 Pain Score Most Recent Pain Score: Most Recent Pain Score Pain Level 0 07/03/22 10:45 Assessment Mental Status: Awake (Alert & Oriented to Patient Baseline) Airway and Respiratory Function: Patent airway with normal (patient baseline) respiratory exam (Auscultated all lung pulido, clear) Cardiovascular Function: Hemodynamically Stable Hydration Status: Adequately Hydrated Nausea & Vomiting: No Nausea or Vomiting Pain: Pt. Denies Any Pain Peripheral Nerve Block: Patient did not receive a nerve block Teaching Patient Teaching: Advised to seek followup for the following concerns (See explanation) (Provided both written and verbal information regarding possible aspiration event, currently reports no symptoms or SOB.) Concerns: Other
[2022-07-09 10:05] LABS: Source: Left Ureter
== END 2022-07-03 12:17 | disposition home or self-care (01) ==
PROVIDERS: PCP Nurse Practitioner Family; Visit Provider Urology
PROC: (CPT 52356; principal; 2022-07-03 07:30)
DX: N20.0 Calculus of kidney (principal); J45.909 Unspecified asthma, uncomplicated; E78.5 Hyperlipidemia, unspecified
CPT/HCPCS: 52356; 74420; 82365; J0690; J1100; J1885; J2405

== ENCOUNTER → 2022-07-09 08:01 | Outpatient (BNVA) | payer MEDICARE, SELFPAY | PROVIDERS: PCP Nurse Practitioner Family; Referring Provider Nurse Practitioner Family; Visit Provider Nurse Practitioner Gerontology | DX: N20.0 Calculus of kidney (principal) ==

== ENCOUNTER 2022-08-06 03:48 | Outpatient (CLI) | payer MEDICARE, SELFPAY ==
[2022-08-06 18:30] LABS: PSA, Screening 5.9 ng/mL (<=4.5)
== END 2022-08-06 03:49 | disposition home or self-care (01) ==
LOC: LBO 03:48
PROVIDERS: PCP Nurse Practitioner Family; Visit Provider Nurse Practitioner Gerontology
DX: R97.20 Elevated prostate specific antigen [PSA] (principal); Z12.5 Encounter for screening for malignant neoplasm of prostate
CPT/HCPCS: 36415; 84153

== ENCOUNTER → 2022-08-12 01:25 | Outpatient (CLI) | payer MEDICARE, SELFPAY ==
--- NOTE | 2022-08-12 07:45 | DI.US_ITS ---
Exam(s) US RENAL EXAM: US RENAL CLINICAL HISTORY: ? hydronephrosis after ureteroscopy,calculus of proximal lt ureter, n20.1. TECHNIQUE: Beard scale, color and spectral Doppler were used. COMPARISON: CT CT RENAL COLIC WO from 05/11/2022 FINDINGS: Renal size in cm: Right: 10.3. Left: 11.8. Echogenicity: Normal. Hydronephrosis: Mild prominence of the left renal collecting system. Cyst or mass: No. Nephrolithiasis: No. Other findings: None. Bladder:Normal. Ureteral jets: Right: Visualized and unremarkable. Left: Visualized and unremarkable. Prevoid vol:420 cc Postvoid vol:55 cc Prostate: 17 cc Renal color flow: Symmetric and within normal limits. IMPRESSION: Minimal prominence of the left renal collecting system which may represent a very mild hydronephrosis . DATA REPOSITORY:
== END ==
PROVIDERS: PCP Nurse Practitioner Family; Visit Provider Urology
DX: N20.1 Calculus of ureter (principal)
CPT/HCPCS: 76770

== ENCOUNTER → 2022-08-13 15:05 | Outpatient (BNVA) | payer MEDICARE, SELFPAY | PROVIDERS: PCP Nurse Practitioner Family; Referring Provider Nurse Practitioner Family; Visit Provider Nurse Practitioner Gerontology | DX: N13.30 Unspecified hydronephrosis (principal); Z87.442 Personal history of urinary calculi; R97.20 Elevated prostate specific antigen [PSA] | CPT/HCPCS: 99213 ==

== ENCOUNTER 2023-02-05 11:08 | Outpatient (REF) | payer MEDICARE, SELFPAY ==
[2023-02-05 16:09] LABS: ALT 44 U/L (16-63); AST 25 U/L (15-37); Alkaline Phosphatase 102 U/L (46-116); Anion Gap 9.6 mmol/L (3-11); BUN 16 mg/dL (7-18); Bilirubin, Total 0.7 mg/dL (0.2-1.0); CO2 26.4 mmol/L (21.0-32.0); Calcium 8.9 mg/dL (8.5-10.1); Calculated LDL 145 mg/dL (<100); Chloride 105 mmol/L (98-107); Cholesterol 225 mg/dL (<200); Estimated GFR 81.47 (mL/min/1.73m2); Glucose 95 mg/dL (74-106); HDL Cholesterol 71 mg/dL (40-60); Potassium 4.9 mmol/L (3.5-5.1); Sodium 141 mmol/L (136-145); Total Protein 7.4 g/dL (6.4-8.2); Triglyceride 46 mg/dL (<150)
[2023-02-06 21:31] LABS: PSA, Screening 4.6 ng/mL (<=4.5)
== END 2023-02-05 11:09 | disposition home or self-care (01) ==
LOC: NCHCN 11:08
PROVIDERS: PCP Nurse Practitioner Family; Visit Provider Nurse Practitioner Family
DX: E78.5 Hyperlipidemia, unspecified (principal); K76.89 Other specified diseases of liver; R97.20 Elevated prostate specific antigen [PSA]; Z12.5 Encounter for screening for malignant neoplasm of prostate
CPT/HCPCS: 80053; 80061; 84153

== ENCOUNTER → 2023-02-18 14:55 | Outpatient (BNVA) | payer MEDICARE, SELFPAY | PROVIDERS: PCP Nurse Practitioner Family; Visit Provider Nurse Practitioner Gerontology | DX: R97.20 Elevated prostate specific antigen [PSA] (principal); Z87.442 Personal history of urinary calculi | CPT/HCPCS: 99213 ==

== ENCOUNTER 2023-05-08 10:24 | Outpatient (REF) | payer MEDICARE, SELFPAY ==
[2023-05-08 09:54] LABS: Abs Immature Grans 0.02 10^3/uL (0.0-0.06); Absolute Basophil Count 0.01 10^3/uL (0.0-0.2); Absolute Eosinophil Count 0.02 10^3/uL (0.0-0.7); Absolute Lymphocyte Count 0.99 10^3/uL (1.2-3.4); Absolute Monocyte Count 0.81 10^3/uL (0.1-0.8); Absolute Neutrophil Count 3.18 10^3/uL (1.2-6.7); Basophils % 0.2; Eosinophils % 0.4; HCT 52.6 % (40.0-50.0); HGB 17.4 g/dL (13.5-17.5); Immature Grans % 0.4; Lymphocytes % 19.7; MCH 30.6 pg (27.0-33.0); MCHC 33.1 % (32.0-36.0); MCV 92 fL (80-95); MPV 9.1 fL (8.0-11.0); Monocytes % 16.1; Neutrophils % 63.2; Platelet Count 251 10^3/uL (130-400); RBC 5.69 10^6/uL (4.36-5.78); RDW 13.2 % (11.8-14.1); RDW-SD 45.1 fL; WBC 5.03 10^3/uL (4.4-10.8)
[2023-05-11 09:44] LABS: IgE <2 IU/mL (<158)
== END 2023-05-08 10:25 | disposition home or self-care (01) ==
LOC: LBN 10:24
PROVIDERS: PCP Nurse Practitioner Family; Visit Provider Student in an Organized Health Care Education/Training Program
DX: J44.9 Chronic obstructive pulmonary disease, unspecified (principal)
CPT/HCPCS: 82785; 85025

== ENCOUNTER → 2023-08-06 09:16 | Outpatient (BNVA) | payer MEDICARE, SELFPAY | PROVIDERS: PCP Nurse Practitioner Family; Referring Provider Nurse Practitioner Family; Visit Provider Physician Assistant Surgical | DX: J43.9 Emphysema, unspecified (principal); Z79.899 Other long term (current) drug therapy; I26.99 Other pulmonary embolism without acute cor pulmonale | CPT/HCPCS: 99213 ==

== ENCOUNTER 2023-08-11 12:49 | Outpatient (CLI) | payer MEDICARE, SELFPAY ==
[2023-08-11 19:22] LABS: PSA, Diagnostic 6.5 ng/mL (<=4.5)
== END 2023-08-11 12:50 | disposition home or self-care (01) ==
LOC: LBO 12:51
PROVIDERS: PCP Nurse Practitioner Family; Visit Provider Nurse Practitioner Gerontology
DX: R97.20 Elevated prostate specific antigen [PSA] (principal)
CPT/HCPCS: 36415; 84153

== ENCOUNTER → 2023-08-19 08:28 | Outpatient (BNVA) | payer MEDICARE, SELFPAY | PROVIDERS: PCP Nurse Practitioner Family; Referring Provider Nurse Practitioner Family; Visit Provider Nurse Practitioner Gerontology | DX: N20.0 Calculus of kidney (principal); R97.20 Elevated prostate specific antigen [PSA] | CPT/HCPCS: 99213 ==

== ENCOUNTER → 2024-02-02 08:28 | Outpatient (BNVA) | payer MEDICARE, SELFPAY | PROVIDERS: PCP Nurse Practitioner Family; Referring Provider Nurse Practitioner Family; Visit Provider Student in an Organized Health Care Education/Training Program | DX: J44.9 Chronic obstructive pulmonary disease, unspecified (principal); I26.99 Other pulmonary embolism without acute cor pulmonale | CPT/HCPCS: 99214 ==

== ENCOUNTER 2024-02-10 13:17 | Outpatient (REF) | payer MEDICARE, SELFPAY ==
[2024-02-10 16:03] LABS: HCT 56.2 % (40.0-50.0); HGB 18.2 g/dL (13.5-17.5); MCH 30.7 pg (27.0-33.0); MCHC 32.4 % (32.0-36.0); MCV 95 fL (80-95); MPV 9.9 fL (8.0-11.0); Platelet Count 261 10^3/uL (130-400); RBC 5.93 10^6/uL (4.36-5.78); RDW 13.1 % (11.8-14.1); RDW-SD 46.2 fL; WBC 4.77 10^3/uL (4.4-10.8)
[2024-02-10 17:08] LABS: ALT 63 U/L (16-63); AST 29 U/L (15-37); Albumin 4.4 g/dL (3.4-5.0); Alkaline Phosphatase 108 U/L (46-116); Anion Gap 11.3 mmol/L (3-11); BUN 12 mg/dL (7-18); Bilirubin, Total 0.7 mg/dL (0.2-1.0); CO2 27.7 mmol/L (21.0-32.0); Calcium 9.6 mg/dL (8.5-10.1); Calculated LDL 109 mg/dL (<100); Chloride 101 mmol/L (98-107); Cholesterol 199 mg/dL (<200); Estimated GFR 80.97 (mL/min/1.73m2); Glucose 100 mg/dL (74-106); HDL Cholesterol 76 mg/dL (40-60); Potassium 5.2 mmol/L (3.5-5.1); Sodium 140 mmol/L (136-145); Total Protein 7.9 g/dL (6.4-8.2); Triglyceride 73 mg/dL (<150)
[2024-02-10 22:33] LABS: PSA, Diagnostic 5.3 ng/mL (<=6.5)
== END 2024-02-10 13:18 | disposition home or self-care (01) ==
LOC: NCHCN 13:17
PROVIDERS: PCP Nurse Practitioner Family; Visit Provider Nurse Practitioner Family
DX: E78.5 Hyperlipidemia, unspecified (principal); R97.20 Elevated prostate specific antigen [PSA]; K76.89 Other specified diseases of liver
CPT/HCPCS: 80053; 80061; 85027; 84153

== ENCOUNTER → 2024-02-17 09:23 | Outpatient (BNVA) | payer MEDICARE, SELFPAY | PROVIDERS: PCP Nurse Practitioner Family; Visit Provider Nurse Practitioner Gerontology | DX: N20.0 Calculus of kidney (principal); R97.20 Elevated prostate specific antigen [PSA] | CPT/HCPCS: 99213 ==

== ENCOUNTER → 2024-08-01 07:37 | Outpatient (BNVA) | payer MEDICARE, SELFPAY | PROVIDERS: PCP Nurse Practitioner Family; Referring Provider Nurse Practitioner Family; Visit Provider Physician Assistant Surgical | DX: I26.99 Other pulmonary embolism without acute cor pulmonale (principal); J44.9 Chronic obstructive pulmonary disease, unspecified | CPT/HCPCS: 99214 ==

== ENCOUNTER 2024-08-10 02:28 | Outpatient (CLI) | payer MEDICARE, SELFPAY ==
[2024-08-10 18:08] LABS: PSA, Diagnostic 6.4 ng/mL (<=6.5)
== END 2024-08-10 02:29 | disposition home or self-care (01) ==
PROVIDERS: PCP Nurse Practitioner Family; Visit Provider Nurse Practitioner Gerontology
DX: R97.20 Elevated prostate specific antigen [PSA] (principal)
CPT/HCPCS: 36415; 84153

== ENCOUNTER → 2024-08-17 09:51 | Outpatient (BNVA) | payer MEDICARE, SELFPAY | PROVIDERS: PCP Nurse Practitioner Family; Visit Provider Nurse Practitioner Gerontology | DX: N20.0 Calculus of kidney (principal); R97.20 Elevated prostate specific antigen [PSA] | CPT/HCPCS: 99213 ==

== ENCOUNTER → 2025-01-30 07:46 | Outpatient (BNVA) | payer MEDICARE, SELFPAY | PROVIDERS: PCP Nurse Practitioner Family; Referring Provider Nurse Practitioner Family; Visit Provider Physician Assistant Surgical | DX: I26.99 Other pulmonary embolism without acute cor pulmonale (principal); J44.9 Chronic obstructive pulmonary disease, unspecified | CPT/HCPCS: 99214 ==

== ENCOUNTER 2025-02-08 04:57 | Outpatient (CLI) | payer MEDICARE, SELFPAY ==
[2025-02-08 17:59] LABS: PSA, Diagnostic 5.1 ng/mL (<=6.5)
== END 2025-02-08 04:58 | disposition home or self-care (01) ==
LOC: LBO 04:57
PROVIDERS: PCP Nurse Practitioner Family; Visit Provider Nurse Practitioner Gerontology
DX: R97.20 Elevated prostate specific antigen [PSA] (principal)
CPT/HCPCS: 36415; 84153

== ENCOUNTER 2025-02-10 12:13 | Outpatient (REF) | payer MEDICARE, SELFPAY ==
[2025-02-10 14:43] LABS: HCT 51.4 % (40.0-50.0); HGB 17.3 g/dL (13.5-17.5); MCH 31.3 pg (27.0-33.0); MCHC 33.7 % (32.0-36.0); MCV 93 fL (80-95); MPV 9.6 fL (8.0-11.0); Platelet Count 260 10^3/uL (130-400); RBC 5.53 10^6/uL (4.36-5.78); RDW-SD 44.6 fL; WBC 4.35 10^3/uL (4.4-10.8)
[2025-02-10 14:56] LABS: ALT 53 U/L (16-63); AST 31 U/L (15-37); Alkaline Phosphatase 120 U/L (46-116); Anion Gap 8.1 mmol/L (3-11); BUN 15 mg/dL (7-18); Bilirubin, Total 0.8 mg/dL (0.2-1.0); CO2 28.9 mmol/L (21.0-32.0); CREATININE 1.1 mg/dL (0.70-1.30); Calcium 9.1 mg/dL (8.5-10.1); Calculated LDL 106 mg/dL (<100); Chloride 102 mmol/L (98-107); Cholesterol 184 mg/dL (<200); Estimated GFR 71.77 (mL/min/1.73m2); Glucose 96 mg/dL (74-106); HDL Cholesterol 66 mg/dL (>or=40); Potassium 4.6 mmol/L (3.5-5.1); Sodium 139 mmol/L (136-145); Total Protein 7.3 g/dL (6.4-8.2); Triglyceride 64 mg/dL (<150)
== END 2025-02-10 12:14 | disposition home or self-care (01) ==
LOC: NCHCN 12:13
PROVIDERS: PCP Nurse Practitioner Family; Visit Provider Nurse Practitioner Family
DX: E78.5 Hyperlipidemia, unspecified (principal); K76.89 Other specified diseases of liver
CPT/HCPCS: 80053; 80061; 85027

== ENCOUNTER → 2025-02-15 09:48 | Outpatient (BNVA) | payer MEDICARE, SELFPAY | PROVIDERS: PCP Nurse Practitioner Family; Referring Provider Nurse Practitioner Family; Visit Provider Nurse Practitioner Gerontology | DX: N20.0 Calculus of kidney (principal); R97.20 Elevated prostate specific antigen [PSA] | CPT/HCPCS: 99213 ==

== ENCOUNTER → 2025-07-31 07:36 | Outpatient (BNVA) | payer MEDICARE, SELFPAY | PROVIDERS: PCP Nurse Practitioner Family; Referring Provider Nurse Practitioner Family; Visit Provider Physician Assistant Surgical | DX: I26.99 Other pulmonary embolism without acute cor pulmonale (principal); J44.9 Chronic obstructive pulmonary disease, unspecified | CPT/HCPCS: 99214 ==

== ENCOUNTER 2025-08-09 00:48 | Outpatient (CLI) | payer MEDICARE, SELFPAY ==
[2025-08-09 17:57] LABS: PSA, Diagnostic 6.1 ng/mL (<=6.5)
== END 2025-08-09 00:49 | disposition home or self-care (01) ==
LOC: LBO 00:48
PROVIDERS: PCP Nurse Practitioner Family; Visit Provider Nurse Practitioner Gerontology
DX: R97.20 Elevated prostate specific antigen [PSA] (principal)
CPT/HCPCS: 36415; 84153

== ENCOUNTER → 2025-08-16 10:42 | Outpatient (BNVA) | payer MEDICARE, SELFPAY | PROVIDERS: PCP Nurse Practitioner Family; Referring Provider Nurse Practitioner Family; Visit Provider Nurse Practitioner Gerontology | DX: N20.0 Calculus of kidney (principal); R97.20 Elevated prostate specific antigen [PSA]; R39.9 Unspecified symptoms and signs involving the genitourinary system | CPT/HCPCS: 99213; 51798 ==